=== PATIENT | male | born 1960 | race Caucasian/White ===

== ENCOUNTER 2020-06-20 18:14 | Inpatient (IN) | payer OTHER ==
[~2020-06-20] VITALS: Ht 172.7 cm; Wt 76.7 kg
[2020-06-20 18:35] VITALS: BP 127/79
[2020-06-20] MEDS ORDERED: TRAZODONE HCL150 MG ORAL (18:35)
[2020-06-20] MEDS ORDERED: MOTRIN IB200 MG ORAL (18:35)
[2020-06-20] MEDS ORDERED: VENTOLIN HFA18 GM INH (18:35)
[2020-06-20] MEDS ORDERED: RESTORIL15 MG ORAL (18:35)
[2020-06-20] MEDS ORDERED: SEROQUEL200 MG ORAL (18:35)
[2020-06-20] MEDS ORDERED: MILK OF MA400 MG/51 ORAL (18:35)
[2020-06-20] MEDS ORDERED: GABAPENTIN400 MG ORAL (18:35)
[2020-06-20] MEDS ORDERED: Sodium Chloride 2,200 ML IVLG ONE (18:45)
[2020-06-20 19:29] VITALS: BP 121/67
--- NOTE | 2020-06-20 19:29 | NUR ---
ED Nurse Note: Report received from OSCAR Landaverde. Patient connected to hall monitor. Vital signs are stable. Will cont. to monitor.
--- NOTE | 2020-06-20 19:30 | NUR ---
ED Nurse Note: Patient brought into ED by [facility] from [facility] for c/o chronic and uncontrolled, generalized body pain that has become worse over the past few weeks. Patient states he has hx of arthritis in his hands and neuropathy in his feet and that the motrin and gabapentin he is being prescribed at the facility has given him no relief. He is aaox4, breathing is normal and unlabored. He is able to ambulate with assistance/walker. Patient provided with warm blankets for comfort. Will cont. to monitor.
[2020-06-20 19:53] LABS: HEMOGLOBIN 12.9 G/DL (14.2-18.0); LYMPHOCYTES % (AUTO) 31.5 % (20.0-45.0); MEAN CORPUSCULAR VOLUME 86 FL (80-99); NEUTROPHILS % (AUTO) 37.5 % (45.0-75.0); PLATELET COUNT 125 K/UL (150-450); RED BLOOD COUNT 4.56 M/UL (4.70-6.10); RED CELL DISTRIBUTION WIDTH 15.3 % (11.6-14.8); WHITE BLOOD COUNT 3.7 K/UL (4.8-10.8)
[2020-06-20 20:13] LABS: INR 1.1 (0.9-1.1)
[2020-06-20] MEDS ORDERED: Ketorolac 30mg Inj IV ONE (20:15)
[2020-06-20 20:25] LABS: ALANINE AMINOTRANSFERASE 71 U/L (12-78); ALBUMIN 3.7 G/DL (3.4-5.0); ALKALINE PHOSPHATASE 123 U/L (46-116); ASPARTATE AMINO TRANSFERASE 59 U/L (15-37); BILIRUBIN,TOTAL 0.4 MG/DL (0.2-1.0); BLOOD UREA NITROGEN 20 mg/dL (7-18); CALCIUM 9.1 MG/DL (8.5-10.1); CARBON DIOXIDE 27 MMOL/L (21-32); CHLORIDE 102 MMOL/L (98-107); CKMB 0.9 NG/ML (0.0-3.6); CREATINE KINASE 63 U/L (26-308); FERRITIN 22 NG/ML (8-388); LACTATE DEHYDROGENASE 171 U/L (81-234); POTASSIUM 3.9 MMOL/L (3.5-5.1); SODIUM 137 MMOL/L (136-145)
[2020-06-20 21:05] VITALS: BP 121/70
--- NOTE | 2020-06-20 21:05 | NUR ---
ED Nurse Note: Patient is resting in bed, NAD noted. He has eyes closed and does not appear to be in severe pain at this time.
--- NOTE | 2020-06-20 21:42 | Emergency Room Report ---
History of Present Illness General Chief Complaint: Pain Source: Patient Present Illness HPI This [facility] in a [facility]. He states that he has chronic neuropathy pain. He states that he does not feel that he is getting appropriate pain management at the facility that he is located in. He states that he is only getting gabapentin, Motrin and Tylenol. He states this is insufficient for his ongoing pain. He states that he cannot sleep and he is frustrated with his chronic pain. He denies new symptoms. He denies recent illness. Denies cough or congestion. He has no other complaints. Allergies: Coded Allergies: BUPROPION (Verified Allergy, Unknown, 06/20/20) COVID-19 Screening Contact w/high risk pt: No Experienced COVID-19 symptoms?: No COVID-19 Testing performed CERTIFIED HOME HEALTH AIDE: No Patient History Past Medical History: see triage record, COPD, GERD, other - polyneuropathy, osteoarthritis Social History: Denies: smoking, alcohol use, drug use Reviewed Nursing Documentation: PMH: Agreed; PSxH: Agreed Nursing Documentation-PMH Past Medical History: No History, Except For Hx COPD: Yes Hx Gastrointestinal Problems: Yes - Gastritis History Of Psychiatric Problem: Yes - bipolar, depression, anxiety, alchohol abuse, Hx Neurological Problems: Yes - polyneuropathy Review of Systems All Other Systems: negative except mentioned in HPI Physical Exam Vital Signs Date Time Temp Pulse Resp B/P (MAP) Pulse Ox O2 Delivery O2 Flow Rate FiO2 06/20/20 18:16 98.4 89 18 127/79 (95) 98 Room Air Sp02 EP Interpretation: reviewed, normal General Appearance: no apparent distress, alert, GCS 15, non-toxic Head: normocephalic, atraumatic Eyes: bilateral eye normal inspection, bilateral eye PERRL ENT: hearing grossly normal, normal pharynx, no angioedema, normal voice Neck: full range of motion, supple/symm/no masses Respiratory: no respiratory distress, no retraction, no accessory muscle use, speaking full sentences Cardiovascular #1: regular rate, rhythm Rectal: deferred Musculoskeletal: normal inspection, normal range of motion, non-tender Neurologic: alert, oriented x3, sensory intact, responsive, speech normal Psychiatric: judgement/insight normal, memory normal, mood/affect normal, no suicidal/homicidal ideation Medical Decision Making Diagnostic Impression: Primary Impression: Intractable pain ER Course This patient has ongoing intractable pain. The primary care physician has been unable to manage the patient's chronic pain at the [facility] facility. The patient will be admitted to observation to undergo evaluation by neurology and pain management. Laboratory Tests Test 06/20/20 18:41 06/20/20 19:05 Troponin I 0.000 ng/mL (0.000-0.056) White Blood Count 3.7 K/UL (4.8-10.8) L Red Blood Count 4.56 M/UL (4.70-6.10) L Hemoglobin 12.9 G/DL (14.2-18.0) L Hematocrit 39.0 % (42.0-52.0) L Mean Corpuscular Volume 86 FL (80-99) Mean Corpuscular Hemoglobin 28.2 PG (27.0-31.0) Mean Corpuscular Hemoglobin Concent 33.0 G/DL (32.0-36.0) Red Cell Distribution Width 15.3 % (11.6-14.8) H Platelet Count 125 K/UL (150-450) L Mean Platelet Volume 6.7 FL (6.5-10.1) Neutrophils (%) (Auto) 37.5 % (45.0-75.0) L Lymphocytes (%) (Auto) 31.5 % (20.0-45.0) Monocytes (%) (Auto) 18.0 % (1.0-10.0) H Eosinophils (%) (Auto) 9.0 % (0.0-3.0) H Basophils (%) (Auto) 4.0 % (0.0-2.0) H Prothrombin Time 11.7 SEC (9.30-11.50) H Prothrombin Time INR 1.1 (0.9-1.1) Activated Partial Thromboplast Time 32 SEC (23-33) D-Dimer 0.44 mg/L FEU (0.00-0.49) Sodium Level 137 MMOL/L (136-145) Potassium Level 3.9 MMOL/L (3.5-5.1) Chloride Level 102 MMOL/L (98-107) Carbon Dioxide Level 27 MMOL/L (21-32) Blood Urea Nitrogen 20 mg/dL (7-18) H Creatinine 1.0 MG/DL (0.55-1.30) Estimated Glomerular Filtration Rate > 60 mL/min (>60) Glucose Level 90 MG/DL (74-106) Lactic Acid Level 0.90 mmol/L (0.4-2.0) Calcium Level 9.1 MG/DL (8.5-10.1) Ferritin 22 NG/ML (8-388) Total Bilirubin 0.4 MG/DL (0.2-1.0) Aspartate Amino Transferase (AST) 59 U/L (15-37) H Alanine Aminotransferase (ALT) 71 U/L (12-78) Alkaline Phosphatase 123 U/L (46-116) H Lactate Dehydrogenase 171 U/L (81-234) Total Creatine Kinase 63 U/L (26-308) Creatine Kinase MB 0.9 NG/ML (0.0-3.6) Creatine Kinase MB Relative Index 1.4 C-Reactive Protein, Quantitative < 0.4 mg/dL (0.00-0.90) Pro-B-Type Natriuretic Peptide 28 pg/mL (0-125) Total Protein 7.3 G/DL (6.4-8.2) Albumin 3.7 G/DL (3.4-5.0) Globulin 3.6 g/dL Albumin/Globulin Ratio 1.0 (1.0-2.7) Lipase 308 U/L (73-393) Microbiology Date/Time Source Procedure Growth Status 06/20/20 19:05 Nasopharynx SARS-CoV-2 RdRp Gene Assay - Final Complete Last Vital Signs Date Time Temp Pulse Resp B/P (MAP) Pulse Ox O2 Delivery O2 Flow Rate FiO2 06/20/20 21:05 98.4 81 14 121/70 97 Room Air Disposition: ADMITTED INPATIENT Condition: Stable Referrals: Franki Fuller DO (PCP) Donna Corona DO Jun 20, 2020 21:42
--- NOTE | 2020-06-20 21:50 | NUR ---
NURSE NOTES: Receive a report from Erika MOORE from ED.
--- NOTE | 2020-06-20 21:50 | NUR ---
ED Nurse Note: Report given to OSCAR Crisostomo. SHIRA aware that patient has not provided urine sample yet.
[2020-06-20 22:00] VITALS: BP 131/75
--- NOTE | 2020-06-20 22:00 | NUR ---
ED Nurse Note: Patient is stable for transfer to unit at this time. Vital signs are stable, NAD noted. Patient taken to unit via gurney by tech. IV is patent. Breathing is normal and unlabored. He took all belongings including walker with him. Pt transferred to bed without complication.
--- NOTE | 2020-06-20 22:00 | NUR ---
NURSE NOTES: Pt admitted via gurney from ED, awake and alert. No acute distress noted except dry cough. Given orientation unit with fall precautions. Body assessment is done- skin intact. Belonging list check done and brought his own FWW. Pt is able to walk slowly without FWW. Bed is locked and lowest. Will continue to monitor.
--- NOTE | 2020-06-20 22:40 | NUR ---
NURSE NOTES: Receive admission orders from Dr. Fuller. Order noted and carried out.
--- NOTE | 2020-06-20 22:50 | NUR ---
NURSE NOTES: Update pt for orders and consults. Pt shows appreciation. Will continue to follow up.
--- NOTE | 2020-06-20 23:15 | NUR ---
NURSE NOTES: Contact Dr. Rico for pt's consult. Receive a message back of seeing pt tomorrow. Will continue to follow up.
[2020-06-20] MEDS: D5 1/2NS 1,000 ML IV SCH (23:37)
[2020-06-20] MEDS: Morphine Sulfate 2mg/ml Inj(IV/IM USE ONLY) IVP PRN (23:48)
[2020-06-21] MEDS: TraZODone 100mg tab ORAL SCH (00:55)
[2020-06-21] MEDS ORDERED: Albuterol 90mcg Inhaler 8gm INH SCH (01:00)
[2020-06-21 01:22] LABS: APPEARANCE,URINE CLEAR; BILIRUBIN, URINE NEGATIVE (NEGATIVE); COLOR,URINE PALE YELLOW; GLUCOSE, URINE (UA) NEGATIVE (NEGATIVE); KETONES,URINE NEGATIVE (NEGATIVE); LEUKOCYTE ESTERASE ,URINE NEGATIVE (NEGATIVE); NITRITE,URINE NEGATIVE (NEGATIVE); PH,URINE 6 (4.5-8.0); PROTEIN,URINE NEGATIVE (NEGATIVE); UROBILINOGEN,URINE NORMAL MG/DL (0.0-1.0)
[2020-06-21 04:00] VITALS: BP 115/67
[2020-06-21] MEDS: Morphine Sulfate 2mg/ml Inj(IV/IM USE ONLY) IVP PRN (05:21)
--- NOTE | 2020-06-21 06:40 | NUR ---
NURSE NOTES: Left a message to Dr. Hoskins's office for consult.
[2020-06-21 06:47] LABS: BASOPHILS % (AUTO) 1.2 % (0.0-2.0); EOSINOPHILS % (AUTO) 9.1 % (0.0-3.0); HEMOGLOBIN 11.6 G/DL (14.2-18.0); LYMPHOCYTES % (AUTO) 45.5 % (20.0-45.0); MEAN CORPUSCULAR VOLUME 85 FL (80-99); MONOCYTES % (AUTO) 14.8 % (1.0-10.0); NEUTROPHILS % (AUTO) 29.4 % (45.0-75.0); PLATELET COUNT 109 K/UL (150-450); RED BLOOD COUNT 4.13 M/UL (4.70-6.10); RED CELL DISTRIBUTION WIDTH 14.9 % (11.6-14.8); WHITE BLOOD COUNT 3.7 K/UL (4.8-10.8)
--- NOTE | 2020-06-21 06:47 | NUR ---
NURSE HAND-OFF: Important Events on Shift: new admission, pain control-2x overnight Patient Status: stable Diet: regular Pending Orders: [] Pending Results/Labs:cbc, bmp Pending MD notification:consult for pain management and neurologist Latest Vital Signs: Temperature 97.4 , Pulse 73 , B/P 115 /67 , Respiratory Rate 18 , O2 SAT 96 , Room Air, O2 Flow Rate . Vital Sign Comment: [] Latest Reeves Fall Score: 50 Fall Risk: High Risk Safety Measures: Call light Within Reach, Bed Alarm , Side Rails Side Rails x2, Bed position Low and Locked. Fall Precautions: Door Sign Patient Fall Education pt says that after getting Morphine 2mg IVS makes him soothing and comfortable despite having pain. Will continue to follow up.
[2020-06-21] MEDS: Albuterol ud Inhalation HHN SCH ×4 (07:00→19:19)
--- NOTE | 2020-06-21 07:34 | NUR ---
NURSE NOTES: Report received from o RN, rounds made. Patient sleeping. No distress on RA. Respirations even/unlabored. IV (D51/2 NS) at 60 ml/hr to RAC, site asymptomatic. Call light in reach, bed in lowest position, will continue to monitor.
--- NOTE | 2020-06-21 07:35 | NUR ---
HAND-OFF: Report given to OSCAR [place]. Round is made.
[2020-06-21 07:44] LABS: ALANINE AMINOTRANSFERASE 49 U/L (12-78); ALBUMIN 2.9 G/DL (3.4-5.0); ALBUMIN/GLOBULIN RATIO 0.9 (1.0-2.7); ALKALINE PHOSPHATASE 91 U/L (46-116); ANION GAP 8 mmol/L (5-15); ASPARTATE AMINO TRANSFERASE 49 U/L (15-37); BILIRUBIN,TOTAL 0.4 MG/DL (0.2-1.0); BLOOD UREA NITROGEN 17 mg/dL (7-18); CALCIUM 8.4 MG/DL (8.5-10.1); CARBON DIOXIDE 24 MMOL/L (21-32); CHLORIDE 106 MMOL/L (98-107); CREATININE 0.9 MG/DL (0.55-1.30); POTASSIUM 4.1 MMOL/L (3.5-5.1); SODIUM 138 MMOL/L (136-145)
[2020-06-21 08:00] VITALS: BP 117/78
[2020-06-21] MEDS: Milk of Magnesia 30ml Ud ORAL SCH (08:50)
--- NOTE | 2020-06-21 08:52 | NUR ---
NURSE NOTES: Patient reports he had a BM this AM without difficulty, normal BFM BM, refused MOM.
[2020-06-21] MEDS: Heparin 5000 units/ml inj SUBQ SCH ×2 (08:53→21:00)
[2020-06-21] MEDS: QUEtiapine 200mg tab ORAL SCH ×2 (08:57→17:47)
--- NOTE | 2020-06-21 08:58 | NUR ---
NURSE NOTES: Unable to scan Gabapentin capsules x4 (400 mg total), Jose opened bin for Gabapentin 100 mg x4 caps, when scanned, the eMAR said medication not found, notified Marco in Pharmacy. Okay to give Gabapentin x4 capsules (100 mg each, 400 mg total).
--- NOTE | 2020-06-21 10:06 | Consultation ---
History of Present Illness General Date patient seen: Jun 21, 2020 Chief Complaint: Pain Present Illness Allergies: Coded Allergies: BUPROPION (Verified Allergy, Unknown, 06/20/20) Medication History Scheduled Albuterol Sulfate (Ventolin Hfa), 2 PUFFS INH EVERY 6 HOURS, (Reported) Gabapentin* (Gabapentin*), 400 MG ORAL THREE TIMES A DAY, (Reported) Ibuprofen* (Motrin Ib*), 600 MG ORAL Q6H, (Reported) Magnesium Hydroxide* (Milk Of Magnesia*), 30 ML ORAL DAILY, (Reported) Quetiapine Fumarate* (Seroquel*), 200 MG ORAL TWICE A DAY, (Reported) Trazodone* (Trazodone*), 100 MG ORAL BEDTIME, (Reported) Scheduled PRN Temazepam* (Restoril*), 15 MG ORAL BEDTIME PRN for Insomnia, (Reported) Patient History Healthcare decision maker Resuscitation status Advanced Directive on File Physical Exam Last 24 Hour Vital Signs Date Time Temp Pulse Resp B/P (MAP) Pulse Ox O2 Delivery O2 Flow Rate FiO2 06/21/20 08:00 98.0 78 18 117/78 (91) 98 06/21/20 04:00 97.4 73 18 115/67 (83) 96 06/21/20 01:16 Room Air 21 06/21/20 01:15 Room Air 21 06/20/20 22:30 Room Air 06/20/20 22:00 99.7 77 18 131/75 (93) 97 06/20/20 22:00 98.6 78 16 122/75 97 Room Air 06/20/20 22:00 78 16 Room Air 06/20/20 21:05 98.4 81 14 121/70 97 Room Air 06/20/20 20:51 98.4 06/20/20 19:29 98.4 80 15 121/67 100 Room Air 06/20/20 18:35 98.4 87 18 127/79 98 Room Air 06/20/20 18:16 98.4 89 18 127/79 (95) 98 Room Air Intake and Output 06/20/20 06/21/20 19:00 07:00 Intake Total 120 ml 520 ml Balance 120 ml 520 ml Intake Oral 120 ml 100 ml IV Total 420 ml # Voids 2 Laboratory Tests Test 06/20/20 18:41 06/20/20 19:05 06/20/20 23:00 06/21/20 04:50 Troponin I 0.000 ng/mL (0.000-0.056) White Blood Count 3.7 K/UL (4.8-10.8) L 3.7 K/UL (4.8-10.8) L Red Blood Count 4.56 M/UL (4.70-6.10) L 4.13 M/UL (4.70-6.10) L Hemoglobin 12.9 G/DL (14.2-18.0) L 11.6 G/DL (14.2-18.0) L Hematocrit 39.0 % (42.0-52.0) L 35.0 % (42.0-52.0) L Mean Corpuscular Volume 86 FL (80-99) 85 FL (80-99) Mean Corpuscular Hemoglobin 28.2 PG (27.0-31.0) 28.1 PG (27.0-31.0) Mean Corpuscular Hemoglobin Concent 33.0 G/DL (32.0-36.0) 33.1 G/DL (32.0-36.0) Red Cell Distribution Width 15.3 % (11.6-14.8) H 14.9 % (11.6-14.8) H Platelet Count 125 K/UL (150-450) L 109 K/UL (150-450) L Mean Platelet Volume 6.7 FL (6.5-10.1) 7.0 FL (6.5-10.1) Neutrophils (%) (Auto) 37.5 % (45.0-75.0) L 29.4 % (45.0-75.0) L Lymphocytes (%) (Auto) 31.5 % (20.0-45.0) 45.5 % (20.0-45.0) H Monocytes (%) (Auto) 18.0 % (1.0-10.0) H 14.8 % (1.0-10.0) H Eosinophils (%) (Auto) 9.0 % (0.0-3.0) H 9.1 % (0.0-3.0) H Basophils (%) (Auto) 4.0 % (0.0-2.0) H 1.2 % (0.0-2.0) Prothrombin Time 11.7 SEC (9.30-11.50) H Prothromb Time International Ratio 1.1 (0.9-1.1) Activated Partial Thromboplast Time 32 SEC (23-33) D-Dimer 0.44 mg/L FEU (0.00-0.49) Sodium Level 137 MMOL/L (136-145) 138 MMOL/L (136-145) Potassium Level 3.9 MMOL/L (3.5-5.1) 4.1 MMOL/L (3.5-5.1) Chloride Level 102 MMOL/L (98-107) 106 MMOL/L (98-107) Carbon Dioxide Level 27 MMOL/L (21-32) 24 MMOL/L (21-32) Blood Urea Nitrogen 20 mg/dL (7-18) H 17 mg/dL (7-18) Creatinine 1.0 MG/DL (0.55-1.30) 0.9 MG/DL (0.55-1.30) Estimat Glomerular Filtration Rate > 60 mL/min (>60) > 60 mL/min (>60) Glucose Level 90 MG/DL (74-106) 89 MG/DL (74-106) Lactic Acid Level 0.90 mmol/L (0.4-2.0) Calcium Level 9.1 MG/DL (8.5-10.1) 8.4 MG/DL (8.5-10.1) L Ferritin 22 NG/ML (8-388) Total Bilirubin 0.4 MG/DL (0.2-1.0) 0.4 MG/DL (0.2-1.0) Aspartate Amino Transf (AST/SGOT) 59 U/L (15-37) H 49 U/L (15-37) H Alanine Aminotransferase (ALT/SGPT) 71 U/L (12-78) 49 U/L (12-78) Alkaline Phosphatase 123 U/L (46-116) H 91 U/L (46-116) Lactate Dehydrogenase 171 U/L (81-234) Total Creatine Kinase 63 U/L (26-308) Creatine Kinase MB 0.9 NG/ML (0.0-3.6) Creatine Kinase MB Relative Index 1.4 C-Reactive Protein, Quantitative < 0.4 mg/dL (0.00-0.90) Pro-B-Type Natriuretic Peptide 28 pg/mL (0-125) Total Protein 7.3 G/DL (6.4-8.2) 6.0 G/DL (6.4-8.2) L Albumin 3.7 G/DL (3.4-5.0) 2.9 G/DL (3.4-5.0) L Globulin 3.6 g/dL 3.1 g/dL Albumin/Globulin Ratio 1.0 (1.0-2.7) 0.9 (1.0-2.7) L Lipase 308 U/L (73-393) Urine Color Pale yellow Urine Appearance Clear Urine pH 6 (4.5-8.0) Urine Specific Edison 1.020 (1.005-1.035) Urine Protein Negative (NEGATIVE) Urine Glucose (UA) Negative (NEGATIVE) Urine Ketones Negative (NEGATIVE) Urine Blood Negative (NEGATIVE) Urine Nitrite Negative (NEGATIVE) Urine Bilirubin Negative (NEGATIVE) Urine Urobilinogen Normal MG/DL (0.0-1.0) Urine Leukocyte Esterase Negative (NEGATIVE) Anion Gap 8 mmol/L (5-15) Microbiology Date/Time Source Procedure Growth Status 06/20/20 21:20 Rectal Mucosa Received 06/20/20 19:05 Nasopharynx SARS-CoV-2 RdRp Gene Assay - Final Complete Height (Feet): 5 Height (Inches): 8.00 Weight (Pounds): 160 Medications Current Medications Medications (Trade) Dose Ordered Sig/Alexander Route PRN Reason Start Time Stop Time Status Last Admin Dose Admin Albuterol Sulfate (Proventil) 2.5 mg Q6HRT HHN 06/21/20 07:00 06/26/20 06:59 06/21/20 08:08 Dextrose/Sodium Chloride 1,000 ml @ 60 mls/hr [id number] IV 06/20/20 23:00 07/20/20 22:59 06/20/20 23:37 Gabapentin (Neurontin) 400 mg THREE TIMES A DAY ORAL 06/21/20 09:00 07/21/20 08:59 06/21/20 08:56 Heparin Sodium (Porcine) (Heparin 5000 units/ml) 5,000 units EVERY 12 HOURS SUBQ 06/21/20 09:00 08/05/20 08:59 Ibuprofen (Motrin) 600 mg Q6H ORAL 06/21/20 00:00 07/21/20 00:00 Magnesium Hydroxide (Mom) 30 ml DAILY ORAL 06/21/20 09:00 07/21/20 08:59 Morphine Sulfate (Morphine Sulfate) 2 mg Q4H PRN IVP Severe Pain (Pain Scale 7-10) 06/20/20 23:00 06/27/20 22:59 06/21/20 05:21 Quetiapine Fumarate (SEROqueL) 200 mg TWICE A DAY ORAL 06/21/20 09:00 08/05/20 08:59 06/21/20 08:57 Temazepam (Restoril) 15 mg BEDTIME PRN ORAL Insomnia 06/20/20 23:15 06/27/20 23:14 Trazodone HCl (Desyrel) 100 mg BEDTIME ORAL 06/20/20 23:30 07/20/20 23:29 06/21/20 00:55 Assessment/Plan Assessment/Plan: (1) Left hip and shoulder pain (2) Left hip and shoulder OA (3) Peripheral neuropathy seen dictated Rico Be Jun 21, 2020 10:06
--- NOTE | 2020-06-21 11:00 | History and Physical Report ---
DATE OF ADMISSION: 06/20/2020 DATE AND TIME SEEN: 06/21/2020 at 9 a.m. CONSULTANTS: 1. Darnell Rico MD. 2. Raul Hoskins MD. 3. Vee Merino MD. CHIEF COMPLAINT: Neuropathy, intractable pain, depression. BRIEF HISTORY: This is a 59-year-old male from [facility], presents with increased right hip neuropathy, intractable pain and was quite depressed, sent to [place], diagnosed with above, admitted to medical floor. Currently, feeling a little bit better with pain medications. No complaints. REVIEW OF SYSTEMS: No chest pain. No shortness of breath. No nausea, vomiting, or diarrhea. PAST MEDICAL HISTORY: COPD, psych history, chronic pain, neuropathy, malnutrition. PAST SURGICAL HISTORY: Right femur. MEDICATIONS: Include Seroquel, MOM, Neurontin, heparin, gabapentin, albuterol, ibuprofen, trazodone, temazepam, morphine, ketorolac. ALLERGIES: Wellbutrin. SOCIAL HISTORY: Positive smoking. No alcohol. No intravenous drug abuse. FAMILY HISTORY: Noncontributory. PHYSICAL EXAMINATION: GENERAL: Calm in bed, oriented x3, no acute distress. VITAL SIGNS: Temperature is 98 degrees, pulse 78, respirations 18, blood pressure 117/78. CARDIOVASCULAR: No murmur. LUNGS: Distant and clear. ABDOMEN: Bowel sounds positive. Nontender, nondistended. EXTREMITIES: No cyanosis or edema. NEUROLOGIC: The patient moves all extremities, slightly weak. LABORATORY AND DIAGNOSTIC DATA: Labs at this time show white count 3.7, hemoglobin and hematocrit 11/35, platelets 109. BMP shows lactic acid 8.4, AST 49, albumin 2.9. INR is 1.1. Urinalysis is negative. ASSESSMENT: Neuropathy, pancytopenia, intractable pain, depression, COPD, psych history, chronic pain and malnutrition. PLAN: Pain control. PT and dietary evaluation. CBC and BMP in the morning. Resume home medications. Hematology evaluation Dr. Barrios. Franki Fuller D.O. DR: BOB/ROE JOB#: [id number] CC:
--- NOTE | 2020-06-21 11:07 | NUR ---
RADIOLOGY DEPT., LEFT SHOULDER AND HIP X-RAYS ARE COMPLETED.-PBRANDY
[2020-06-21 12:00] VITALS: BP 149/83
--- NOTE | 2020-06-21 12:45 | NUR ---
NURSE NOTES: Reviewed new medication orders (scheduled/PRN), verbalized understanding.
[2020-06-21] MEDS ORDERED: TRIAMCINOLONE A60 M1 TP (13:52)
[2020-06-21] MEDS ORDERED: MYLANTA30 M1 GT (13:52)
[2020-06-21] MEDS: D5 1/2NS 1,000 ML IV SCH (13:53)
[2020-06-21] MEDS ORDERED: IBUPROFEN600 M1 GT (13:56)
--- NOTE | 2020-06-21 14:40 | Consultation ---
History of Present Illness General Chief Complaint: Pain Present Illness Allergies: Coded Allergies: BUPROPION (Verified Allergy, Unknown, 06/20/20) Medication History Scheduled Albuterol Sulfate (Ventolin Hfa), 2 PUFFS INH EVERY 6 HOURS, (Reported) Gabapentin* (Gabapentin*), 400 MG ORAL THREE TIMES A DAY, (Reported) Magnesium Hydroxide* (Milk Of Magnesia*), 30 ML ORAL DAILY, (Reported) Quetiapine Fumarate* (Seroquel*), 200 MG ORAL TWICE A DAY, (Reported) Trazodone* (Trazodone*), 100 MG ORAL BEDTIME, (Reported) Triamcinolone Acetonide (Triamcinolone Acetonide 0.1% LOTN), 60 ML TP DAILY, (Reported) Scheduled PRN Al Hydroxide/mg Hydroxide (Mag-Al Liquid), 30 ML GT EVERY 4 HOURS PRN for GI DISTRESS, (Reported) Ibuprofen* (Motrin*), 600 MG GT Q6H PRN for For Pain, (Reported) Temazepam* (Restoril*), 15 MG ORAL BEDTIME PRN for Insomnia, (Reported) Discontinued Medications Ibuprofen* (Motrin Ib*), 600 MG ORAL Q6H, (Reported) Discontinued Reason: Prescription changed Patient History Healthcare decision maker Resuscitation status Advanced Directive on File Physical Exam Last 24 Hour Vital Signs Date Time Temp Pulse Resp B/P (MAP) Pulse Ox O2 Delivery O2 Flow Rate FiO2 06/21/20 13:18 87 18 99 Room Air 21 83 18 96 06/21/20 12:00 98.3 80 18 149/83 (105) 96 06/21/20 08:18 91 18 99 Room Air 21 88 18 97 06/21/20 08:00 98.0 78 18 117/78 (91) 98 06/21/20 04:00 97.4 73 18 115/67 (83) 96 06/21/20 01:16 Room Air 21 06/21/20 01:15 Room Air 21 06/20/20 22:30 Room Air 06/20/20 22:00 99.7 77 18 131/75 (93) 97 06/20/20 22:00 98.6 78 16 122/75 97 Room Air 06/20/20 22:00 78 16 Room Air 06/20/20 21:05 98.4 81 14 121/70 97 Room Air 06/20/20 20:51 98.4 06/20/20 19:29 98.4 80 15 121/67 100 Room Air 06/20/20 18:35 98.4 87 18 127/79 98 Room Air 06/20/20 18:16 98.4 89 18 127/79 (95) 98 Room Air Intake and Output 06/20/20 06/21/20 19:00 07:00 Intake Total 120 ml 520 ml Balance 120 ml 520 ml Intake Oral 120 ml 100 ml IV Total 420 ml # Voids 2 Laboratory Tests Test 06/20/20 18:41 06/20/20 19:05 06/20/20 23:00 06/21/20 04:50 Troponin I 0.000 ng/mL (0.000-0.056) White Blood Count 3.7 K/UL (4.8-10.8) L 3.7 K/UL (4.8-10.8) L Red Blood Count 4.56 M/UL (4.70-6.10) L 4.13 M/UL (4.70-6.10) L Hemoglobin 12.9 G/DL (14.2-18.0) L 11.6 G/DL (14.2-18.0) L Hematocrit 39.0 % (42.0-52.0) L 35.0 % (42.0-52.0) L Mean Corpuscular Volume 86 FL (80-99) 85 FL (80-99) Mean Corpuscular Hemoglobin 28.2 PG (27.0-31.0) 28.1 PG (27.0-31.0) Mean Corpuscular Hemoglobin Concent 33.0 G/DL (32.0-36.0) 33.1 G/DL (32.0-36.0) Red Cell Distribution Width 15.3 % (11.6-14.8) H 14.9 % (11.6-14.8) H Platelet Count 125 K/UL (150-450) L 109 K/UL (150-450) L Mean Platelet Volume 6.7 FL (6.5-10.1) 7.0 FL (6.5-10.1) Neutrophils (%) (Auto) 37.5 % (45.0-75.0) L 29.4 % (45.0-75.0) L Lymphocytes (%) (Auto) 31.5 % (20.0-45.0) 45.5 % (20.0-45.0) H Monocytes (%) (Auto) 18.0 % (1.0-10.0) H 14.8 % (1.0-10.0) H Eosinophils (%) (Auto) 9.0 % (0.0-3.0) H 9.1 % (0.0-3.0) H Basophils (%) (Auto) 4.0 % (0.0-2.0) H 1.2 % (0.0-2.0) Prothrombin Time 11.7 SEC (9.30-11.50) H Prothromb Time International Ratio 1.1 (0.9-1.1) Activated Partial Thromboplast Time 32 SEC (23-33) D-Dimer 0.44 mg/L FEU (0.00-0.49) Sodium Level 137 MMOL/L (136-145) 138 MMOL/L (136-145) Potassium Level 3.9 MMOL/L (3.5-5.1) 4.1 MMOL/L (3.5-5.1) Chloride Level 102 MMOL/L (98-107) 106 MMOL/L (98-107) Carbon Dioxide Level 27 MMOL/L (21-32) 24 MMOL/L (21-32) Blood Urea Nitrogen 20 mg/dL (7-18) H 17 mg/dL (7-18) Creatinine 1.0 MG/DL (0.55-1.30) 0.9 MG/DL (0.55-1.30) Estimat Glomerular Filtration Rate > 60 mL/min (>60) > 60 mL/min (>60) Glucose Level 90 MG/DL (74-106) 89 MG/DL (74-106) Lactic Acid Level 0.90 mmol/L (0.4-2.0) Calcium Level 9.1 MG/DL (8.5-10.1) 8.4 MG/DL (8.5-10.1) L Ferritin 22 NG/ML (8-388) Total Bilirubin 0.4 MG/DL (0.2-1.0) 0.4 MG/DL (0.2-1.0) Aspartate Amino Transf (AST/SGOT) 59 U/L (15-37) H 49 U/L (15-37) H Alanine Aminotransferase (ALT/SGPT) 71 U/L (12-78) 49 U/L (12-78) Alkaline Phosphatase 123 U/L (46-116) H 91 U/L (46-116) Lactate Dehydrogenase 171 U/L (81-234) Total Creatine Kinase 63 U/L (26-308) Creatine Kinase MB 0.9 NG/ML (0.0-3.6) Creatine Kinase MB Relative Index 1.4 C-Reactive Protein, Quantitative < 0.4 mg/dL (0.00-0.90) Pro-B-Type Natriuretic Peptide 28 pg/mL (0-125) Total Protein 7.3 G/DL (6.4-8.2) 6.0 G/DL (6.4-8.2) L Albumin 3.7 G/DL (3.4-5.0) 2.9 G/DL (3.4-5.0) L Globulin 3.6 g/dL 3.1 g/dL Albumin/Globulin Ratio 1.0 (1.0-2.7) 0.9 (1.0-2.7) L Lipase 308 U/L (73-393) Urine Color Pale yellow Urine Appearance Clear Urine pH 6 (4.5-8.0) Urine Specific [place] 1.020 (1.005-1.035) Urine Protein Negative (NEGATIVE) Urine Glucose (UA) Negative (NEGATIVE) Urine Ketones Negative (NEGATIVE) Urine Blood Negative (NEGATIVE) Urine Nitrite Negative (NEGATIVE) Urine Bilirubin Negative (NEGATIVE) Urine Urobilinogen Normal MG/DL (0.0-1.0) Urine Leukocyte Esterase Negative (NEGATIVE) Anion Gap 8 mmol/L (5-15) Microbiology Date/Time Source Procedure Growth Status 06/20/20 21:20 Rectal Mucosa Received 06/20/20 19:05 Nasopharynx SARS-CoV-2 RdRp Gene Assay - Final Complete Height (Feet): 5 Height (Inches): 8.00 Weight (Pounds): 160 Medications Current Medications Medications (Trade) Dose Ordered Sig/Alexander Route PRN Reason Start Time Stop Time Status Last Admin Dose Admin Albuterol Sulfate (Proventil) 2.5 mg Q6HRT HHN 06/21/20 07:00 06/26/20 06:59 06/21/20 13:08 Dextrose/Sodium Chloride 1,000 ml @ 60 mls/hr [id number] IV 06/20/20 23:00 07/20/20 22:59 06/21/20 13:53 Gabapentin (Neurontin) 400 mg THREE TIMES A DAY ORAL 06/21/20 09:00 07/21/20 08:59 06/21/20 12:42 Heparin Sodium (Porcine) (Heparin 5000 units/ml) 5,000 units EVERY 12 HOURS SUBQ 06/21/20 09:00 08/05/20 08:59 Ibuprofen (Motrin) 600 mg Q6H ORAL 06/21/20 00:00 07/21/20 00:00 06/21/20 12:44 Lidocaine (Lidoderm 5% PATCH) 2 patch Q24H TDERMAL 06/21/20 12:00 09/19/20 11:59 06/21/20 12:45 Magnesium Hydroxide (Mom) 30 ml DAILY ORAL 06/21/20 09:00 07/21/20 08:59 Methocarbamol (Robaxin) 500 mg Q8H PRN ORAL muscle spasm 06/21/20 10:15 07/21/20 10:14 Quetiapine Fumarate (SEROqueL) 200 mg TWICE A DAY ORAL 06/21/20 09:00 08/05/20 08:59 06/21/20 08:57 Temazepam (Restoril) 15 mg BEDTIME PRN ORAL Insomnia 06/20/20 23:15 06/27/20 23:14 Tramadol HCl (Ultram) 50 mg Q4H PRN ORAL severe pain 06/21/20 10:06 06/28/20 10:05 Trazodone HCl (Desyrel) 100 mg BEDTIME ORAL 06/20/20 23:30 07/20/20 23:29 06/21/20 00:55 Assessment/Plan Assessment/Plan: Hematology Consultation REQ : Franki Fuller RFC: Pancytopenia DOS: 06/21/2020 ID 59y old male, This patient resides in a alf facility. He states that he has chronic neuropathy pain. He states that he does not feel that he is getting appropriate pain management at the facility that he is located in. He states that he is only getting gabapentin, Motrin and Tylenol. He states this is insufficient for his ongoing pain. He states that he cannot sleep and he is frustrated with his chronic pain. He denies new symptoms. He denies recent i llness. Denies cough or congestion. He has no other complaints. Has been seen by pain management. Allergies: BUPROPION (Verified Allergy, Unknown, 06/20/20) COVID-19 Screening Contact w/high risk pt: No Experienced COVID-19 symptoms?: No COVID-19 Testing performed PAN CLEANER: No Patient History Past Medical History: see triage record, COPD, GERD, other - polyneuropathy, o steoarthritis Social History: Denies: smoking, alcohol use, drug use Reviewed Nursing Documentation: PMH: Agreed; PSxH: Agreed Nursing Documentation-PMH Past Medical History: No History, Except For Hx COPD: Yes Hx Gastrointestinal Problems: Yes - Gastritis History Of Psychiatric Problem: Yes - bipolar, depression, anxiety, alchohol abuse, Hx Neurological Problems: Yes - polyneuropathy Review of Systems All Other Systems: negative except mentioned in HPI Physical Exam: Vitals: reviewed General: NAD HEENT: nc, at Neck: supple Chest: clear breath sounds bilaterally Cardiovascular: RRR, no s3, s4 Abdomen: soft, nontender, nd Extremities: no cce, normal range of motion Neuro: alert and oriented Labs: reviewed Imaging: noted Assessment and Recs # Pancytopenia -- multiple etiologies could be related to underlying liver disease, medication-induced, infection versus viral syndrome versus underlying bone marrow cause --> peripheral smear has been ordered and does not show significant abnormalities --> Medications have been reviewed --> Continue to monitor for improvement, trend cbc --> Hep panel and HIV have been orders --> US abd ordered to r/o cirrhosis and hepatosplenomegaly --> reverse isolation if ANC is <2000 --> Give neupogen if ANC <1000 --> Transfuse if hgb <7, with 1 unit prbc # Coagulopathy --> mildly elev pt # Intractable pain --> as per pain management # Transaminitis --> monitor, ast elev # Dvt ppx scds The timing of this note does not necessarily reflect the time of the patient was seen. Greatly appreciate consultation. Daniel Barrios MD Jun 21, 2020 14:40
--- NOTE | 2020-06-21 14:50 | NUR ---
CASE MANAGEMENT: INITIAL REVIEW 06/20/2020 59 YO M PRESENTED TO ED FROM [facility] CC: PAIN PMHx: COPD, GERD, polyneuropathy, osteoarthritis SI:INTRACTABLE PAIN VS: T 98.4 HR 89 RR 18 B/P 127/79 SATS 98% ON RA LABS: WBC 3.7 BUN 20 AST 59 ALP 123 IS: NS BOLUS X1 TORADOL IV X1 PATIENT ADMITTED TO MED/SURG 06/20/2020 @ 2053 DCP: SNF PLAN OF CARE: PT EVAL CONCURRENT REVIEW FOR 06/21/2020 SI: INTRACTABLE PAIN VS: T 98.3 HR 80 RR 18 B/P 149/83 SATS 96% ON RA LABS: WBC 3.7 CA 8.4 AST 49 HIV ANTIBODY PENDING IS: DEXTROSE/SODIUM IV @ 60 ML/HR SEROQUEL PO BID TRAZODONE PO QHS MOTRIN PO Q6H MED/SURG DCP: SNF PLAN OF CARE: PT EVAL
--- NOTE | 2020-06-21 14:58 | Diagnostic Imaging Report ---
Procedure: XRAY Chest 1v Reason for study: Chest pain. Comparison films: None. FINDINGS: A single one view chest is obtained. Vascularity is normal. The lung moss are clear bilaterally. Cardiac and mediastinal silhouette are within normal limits. CP angles are sharp. The bony thorax appear unremarkable. IMPRESSION: NO ACUTE CARDIOPULMONARY DISEASE.
--- NOTE | 2020-06-21 15:07 | NUR ---
insurance no b/ar or email indication where to fax clinicals email request sent pt only meets obs criteria at this point. Dr Fuller made aware. xrays are still pending. Addendum: 06/21/20 at 1640 by Lisbeth Mcconnell CM PROGRESS NOTES FAXED TO Connor Cerda - [phone] fax [phone]
--- NOTE | 2020-06-21 15:57 | NUR ---
P.T Note: P.T evaluation complete. Pt presented full independent in all basic functional mobilities and gait/locomotion despite c/o L shoulder pain 8-06/08. Current functional status does not warrant skilled P.T service at this time. DC P.T service. Thank you for this referral.
[2020-06-21 16:00] VITALS: BP 97/61
--- NOTE | 2020-06-21 17:15 | Consultation ---
DATE OF CONSULTATION: 06/21/2020 PAIN MANAGEMENT CONSULTATION CONSULTING PHYSICIAN: Darnell Rico MD. REFERRING PHYSICIAN: Franki Fuller DO. PHYSICIAN MEDICAL CENTER DIRECTOR: HOLGER Perkins. CHIEF COMPLAINT: Left shoulder pain, left hip pain, and bilateral lower extremity pain. HISTORY OF PRESENT ILLNESS: The patient is a 59-year-old male, who is being seen on the Med/Surg floor of [facility] for initial pain management consultation. The patient was admitted under the care of Dr. Fuller due to intractable pain, [facility] having complaints of bilateral lower extremity pain due to peripheral neuropathy as well as left shoulder and left hip pain. Pain is worse with movement and activities. He states he has reduced range of motion in his left shoulder, which causing him discomfort and was admitted to the hospital. He is on Neurontin 400 mg tablet three times a day and Motrin in the [facility] facility with minimal pain relief. He was started on a morphine 2 mg IV every hours as needed for pain as per Dr. Fuller. At this time, discussed with the patient in detail about opioid usage with the osteoarthritic pain. However, due to the patient's pain, we will discontinue the morphine, start him on medication such as tramadol and add lidocaine patches, and muscle relaxer to help relieve his pain, and we recommend orthopedic surgeon as per Dr. Fuller to rule out any further pathology. We will order x-rays of the left shoulder and left hip as well. PAST MEDICAL HISTORY: GERD, COPD, polyneuropathy, osteoarthritis. PAST SURGICAL HISTORY: Right femur ORIF. SOCIAL HISTORY: Smokes cigarettes. Denies alcohol or IV drug abuse. ALLERGIES: Wellbutrin. MEDICATIONS: Albuterol, Neurontin, Motrin, Seroquel, trazodone, and Restoril. REVIEW OF SYSTEMS: Denies rash, fever, chills, sweating, dizziness, drowsiness, blurred vision, sore throat, or change in weight. No nausea, vomiting, diarrhea, or blood in the stool. No dysuria. PHYSICAL EXAMINATION: GENERAL: Alert, awake, and oriented. VITAL SIGNS: Blood pressure 117/78, heart rate 78, oxygen saturation 98%, respiratory rate 18, temperature 98 degrees Fahrenheit. HEENT: PERRLA. NECK: Range of motion is full in all directions. No tenderness to paracervical muscles. No adenopathy. LUNGS: Decreased breath sounds bilaterally. HEART: S1 and S2, regular. ABDOMEN: Soft and nontender. BACK: Range of motion is full on flexion and extension. EXTREMITIES: Upper and lower extremity range of motion is decreased due to the patient's condition. No cyanosis. No clubbing. No edema. Sensory is reduced. Reflexes are not obtainable. No adenopathy. ASSESSMENT AND PLAN: A 59-year-old male with left hip and shoulder pain, osteoarthritis, and peripheral neuropathy. The patient will be continued on Neurontin. We will discontinue the morphine and start the patient on lidocaine patch to be applied to the left hip and left shoulder. Robaxin 500 mg tablet every 8 hours as needed for muscle spasm. We will order x-ray of the left shoulder and left hip to rule out any further pathology and recommend orthopedic surgeon as per Dr. Fuller. The patient was discussed with Dr. Rico and Dr. Rico concurred. We will follow the patient. Thank you very much for the courtesy of this consultation. Darnell Rico M.D. HOLGER Perkins DR: PRITI JOB#: [id number] CC:
--- NOTE | 2020-06-21 17:34 | Diagnostic Imaging Report ---
EXAM: XR Left Shoulder Complete, 2 or More Views CLINICAL HISTORY: PAIN TECHNIQUE: Two or more views of the left shoulder. COMPARISON: No relevant prior studies available. FINDINGS: Bones/joints: Advanced degeneration of the left glenohumeral joint. Mild osteoarthrosis of the left acromioclavicular joint.. No acute fracture. No dislocation. Soft tissues: Unremarkable. IMPRESSION: Advanced degeneration of the left glenohumeral joint. Mild osteoarthrosis of the left AC joint.
--- NOTE | 2020-06-21 18:05 | Diagnostic Imaging Report ---
EXAM: XR Left Hip, 1 view CLINICAL HISTORY: PAIN TECHNIQUE: One frontal view of the left hip COMPARISON: No relevant prior studies available. FINDINGS: Bones/joints: Mild degeneration of the left hip. Degeneration of the pubic symphysis. No acute fracture. No dislocation. Soft tissues: Unremarkable. IMPRESSION: Degeneration of the pubic symphysis and left hip.
--- NOTE | 2020-06-21 19:00 | NUR ---
NURSE HAND-OFF: Important Events on Shift:PT evaluation done, PXR (left shoulder/left hip) done, Lidocaine patches applied to left shoulder (lateral arm)/left hip (thigh) Patient Status: Stable Diet: Regular Pending Orders: Labs in AM Pending Results/Labs:CBC BMP 06/22 Pending MD notification:none Latest Vital Signs: Temperature 97.9 , Pulse 76 , B/P 97 /61 , Respiratory Rate 18 , O2 SAT 94 , Room Air, O2 Flow Rate . Vital Sign Comment: none Latest Reeves Fall Score: 50 Fall Risk: High Risk Safety Measures: Call light Within Reach, Bed Alarm Zone 1, Side Rails Side Rails x2, Bed position Low and Locked. Fall Precautions: Yellow Socks Door Sign Patient Fall Education Report given to Andressa RN.
--- NOTE | 2020-06-21 19:30 | NUR ---
NURSE NOTES: Receive a report from OSCAR [place]. Round is done. Pt is asleep but easily aroused. No acute distress noted. Pt says that pain is there but tolerating. Explain for current regime for pain control. Pt verbalizes understanding. Call light within reach. Will continue to monitor.
[2020-06-21 20:00] VITALS: BP 98/59
--- NOTE | 2020-06-21 21:30 | Consultation ---
DATE OF CONSULTATION: 06/21/2020 CONSULTING PHYSICIAN: Vee Merino M.D. HISTORY OF PRESENT ILLNESS: This is a 59-year-old male patient who came from [facility] to the hospital because of neuropathy, intractable pain, and depression and right hip proximal neuropathy. The patient basically complains of depression because of chronic pain low energy, poor appetite, and loss of interest in activity. PAST MEDICAL HISTORY: The patient has a history of intractable pain, but he also has overlying diagnosis of paranoid schizophrenia, which he takes Seroquel 100 mg twice a day. The patient low energy, poor appetite, and loss of interest in activity. ALLERGIES: Wellbutrin. SUBSTANCE ABUSE HISTORY: No known history of drug or alcohol use. FAMILY PSYCHIATRIC HISTORY: Denies. PAIN ASSESSMENT: 11/06 pain. DEVELOPMENTAL PROBLEMS: Denies. SOCIAL HISTORY: Lives in [facility]. Financially supported by [employer]. No legal problems. Positive psychiatric history, history of bipolar 2 and paranoid schizophrenia. STRENGTHS: Motivated to get better and has a place to live. WEAKNESSES: Impulsive, minimal support system. MENTAL STATUS EXAMINATION: This is a 59-year-old male. His appearance is disheveled. Attitude, irritable and agitated. Affect, restricted. Intellect poor. Mood, depressed and anxious. Motor activity, psychomotor agitation. Attention is poor. Orientation x2. Speech is low volume, slurred. Thought process, disorganized. Insight and judgment is poor. DIAGNOSIS: Paranoid schizophrenia acute exacerbation. PLAN: Treat with medication regimen of Seroquel 20 mg twice a day and treat him with also Neurontin and trazodone 100 mg at bedtime and Neurontin 400 mg 3 times a day. Twenty minutes of reality-based supportive psychotherapy provided. Seen at bedside. Twenty minutes of cognitive behavioral therapy provided to help identify his automatic negative thoughts, help him convert his negative thoughts to more positive thoughts to reduce depression, anxiety, and mood lability. Chart reviewed. Discussed with staff. Vee Merino M.D. DR: Alvin JOB#: [id number] CC:
[2020-06-21] MEDS: traMADol 50mg tab ORAL PRN (23:32)
[2020-06-22] VITALS: BP 105/63
[2020-06-22] MEDS: TraZODone 100mg tab ORAL SCH ×2 (00:44→22:22)
[2020-06-22] MEDS: Albuterol ud Inhalation HHN SCH ×4 (00:59→19:26)
--- NOTE | 2020-06-22 01:00 | NUR ---
NURSE NOTES: After taking tramadol for pain, pt is asleep. Will continue to monitor.
[2020-06-22 04:00] VITALS: BP 125/70
[2020-06-22] MEDS: traMADol 50mg tab ORAL PRN ×3 (05:51→22:22)
--- NOTE | 2020-06-22 06:00 | NUR ---
NURSE NOTES: Pt says that he had a good night sleep. Pain level is 8/10 but feeling smooth. Provide prn Tramadol 1t po. Made aware of S/Es. No SOB/ no distress noted. Will continue to monitor.
[2020-06-22 06:25] LABS: HEMATOCRIT 34.6 % (42.0-52.0); HEMOGLOBIN 11.4 G/DL (14.2-18.0); MEAN CORPUSCULAR VOLUME 85 FL (80-99); PLATELET COUNT 93 K/UL (150-450); RED BLOOD COUNT 4.06 M/UL (4.70-6.10); RED CELL DISTRIBUTION WIDTH 14.8 % (11.6-14.8); WHITE BLOOD COUNT 3.4 K/UL (4.8-10.8)
--- NOTE | 2020-06-22 06:33 | NUR ---
NURSE HAND-OFF: Important Events on Shift: Pain control-Given prn Tramadol 1t po 2x including routine meds, Hold Heparin d/t low PLT-no bruise noted. Patient Status: stable Diet: regular Pending Orders: [] Pending Results/Labs:CBC, CMP Pending MD notification:Nicotine patch d/t smoker-1/2 package a day Latest Vital Signs: Temperature 98.0 , Pulse 74 , B/P 125 /70 , Respiratory Rate 18 , O2 SAT 94 , Room Air, O2 Flow Rate . Vital Sign Comment: [] Latest Reeves Fall Score: 50 Fall Risk: High Risk Safety Measures: Call light Within Reach, Bed Alarm Zone 1, Side Rails Side Rails x2, Bed position Low and Locked. Fall Precautions: Door Sign Patient Fall Education
[2020-06-22 06:34] LABS: ANION GAP 4 mmol/L (5-15); BLOOD UREA NITROGEN 13 mg/dL (7-18); CALCIUM 8.5 MG/DL (8.5-10.1); CARBON DIOXIDE 26 MMOL/L (21-32); CHLORIDE 107 MMOL/L (98-107); CREATININE 1.1 MG/DL (0.55-1.30); SODIUM 137 MMOL/L (136-145)
[2020-06-22] MEDS: D5 1/2NS 1,000 ML IV SCH (07:06)
--- NOTE | 2020-06-22 07:15 | NUR ---
HAND-OFF: Report given to OSCAR [place].
[2020-06-22 08:00] VITALS: BP 132/72
[2020-06-22] MEDS: Heparin 5000 units/ml inj SUBQ SCH ×2 (09:00→21:00)
[2020-06-22] MEDS: Milk of Magnesia 30ml Ud ORAL SCH (09:00)
--- NOTE | 2020-06-22 09:17 | General Progress Note ---
Subjective Constitutional: Reports: weakness Allergies: Coded Allergies: BUPROPION (Verified Allergy, Unknown, 06/20/20) All Systems: reviewed and negative except above Subjective sl gen pain Objective Last 24 Hour Vital Signs Date Time Temp Pulse Resp B/P (MAP) Pulse Ox O2 Delivery O2 Flow Rate FiO2 06/22/20 08:00 97.5 84 18 132/72 (92) 94 06/22/20 07:56 80 18 99 Room Air 21 77 18 97 06/22/20 04:00 98.0 74 18 125/70 (88) 94 06/22/20 00:00 97.9 79 18 105/63 (77) 94 06/21/20 21:00 Room Air 06/21/20 20:00 97.9 84 16 98/59 (72) 93 06/21/20 19:19 84 18 99 Room Air 21 76 18 95 06/21/20 16:00 97.9 76 18 97/61 (73) 94 06/21/20 13:18 87 18 99 Room Air 21 83 18 96 06/21/20 12:00 98.3 80 18 149/83 (105) 96 Intake and Output 06/21/20 06/22/20 19:00 07:00 Intake Total 1640 ml 840 ml Output Total 1250 ml 950 ml Balance 390 ml -110 ml Intake Oral 1100 ml 120 ml IV Total 540 ml 720 ml Output Urine Total 1250 ml 950 ml # Voids 3 2 # Bowel Movements 2 Laboratory Tests 06/22/20 04:55: White Blood Count 3.4L, Red Blood Count 4.06L, Hemoglobin 11.4L, Hematocrit 34.6L, Mean Corpuscular Volume 85, Mean Corpuscular Hemoglobin 28.0, Mean Corpuscular Hemoglobin Concent 32.9, Red Cell Distribution Width 14.8, Platelet Count 93L, Mean Platelet Volume 6.6, Neutrophils (%) (Auto) , Lymphocytes (%) (Auto) , Monocytes (%) (Auto) , Eosinophils (%) (Auto) , Basophils (%) (Auto) , Differential Total Cells Counted 100, Neutrophils % (Manual) 43L, Lymphocytes % (Manual) 43, Monocytes % (Manual) 6, Eosinophils % (Manual) 8H, Basophils % (Manual) 0, Band Neutrophils 0, Platelet Estimate DecreasedL, Platelet Morphology Normal, Anisocytosis 1+, Sodium Level 137, Potassium Level 4.0, Chloride Level 107, Carbon Dioxide Level 26, Anion Gap 4L, Blood Urea Nitrogen 13, Creatinine 1.1, Estimat Glomerular Filtration Rate > 60, Glucose Level 87, Calcium Level 8.5, Hepatitis A IgM Antibody [Pending], Hepatitis B Surface Antigen [Pending], Hepatitis B Core IgM Antibody [Pending], Hepatitis C Antibody [Pending] Height (Feet): 5 Height (Inches): 8.00 Weight (Pounds): 160 General Appearance: lethargic EENT: normal ENT inspection Neck: normal alignment Cardiovascular: normal peripheral pulses, normal rate, regular rhythm Respiratory/Chest: chest wall non-tender, lungs clear, normal breath sounds Abdomen: normal bowel sounds, non tender, soft Extremities: normal inspection Edema: no edema noted Arm (L), no edema noted Arm (R), no edema noted Leg (L), no edema noted Leg (R), no edema noted Pedal (L), no edema noted Pedal (R), no edema noted Generalized Neurologic: responsive, motor weakness Skin: normal pigmentation, warm/dry Assessment/Plan Problem List: (1) Neuropathy ICD Codes: G62.9 - Polyneuropathy, unspecified SNOMED: 393502111 (2) Pancytopenia ICD Codes: D61.818 - Other pancytopenia SNOMED: 889399898 (3) Depressed ICD Codes: F32.9 - Major depressive disorder, single episode, unspecified SNOMED: 53096534 (4) Malnutrition ICD Codes: E46 - Unspecified protein-calorie malnutrition SNOMED: 89048107 (5) COPD (chronic obstructive pulmonary disease) ICD Codes: J44.9 - Chronic obstructive pulmonary disease, unspecified SNOMED: 05158431 (6) Chronic pain ICD Codes: G89.29 - Other chronic pain SNOMED: 81321418 (7) Intractable pain ICD Codes: R52 - Pain, unspecified SNOMED: 43502891 Status: unchanged Assessment/Plan: pt diet pain control psyc eval heme eval cbc bmp am Franki Fuller DO Jun 22, 2020 09:17
[2020-06-22] MEDS: QUEtiapine 200mg tab ORAL SCH ×2 (10:11→17:56)
[2020-06-22] MEDS: Methocarbamol 500mg tab ORAL PRN (11:39)
--- NOTE | 2020-06-22 11:51 | Initial Psychiatric Evaluation ---
Psychiatry Consultation Psychiatry Consultation Chief Complaint: Pain History of Present Illness: 59 yo male doing well on Seroquel. Paient denies suicidal or hmoicidal ideations. Allergies: Coded Allergies: BUPROPION (Verified Allergy, Unknown, 06/20/20) Medication History Scheduled Albuterol Sulfate (Ventolin Hfa), 2 PUFFS INH EVERY 6 HOURS, (Reported) Gabapentin* (Gabapentin*), 400 MG ORAL THREE TIMES A DAY, (Reported) Magnesium Hydroxide* (Milk Of Magnesia*), 30 ML ORAL DAILY, (Reported) Quetiapine Fumarate* (Seroquel*), 200 MG ORAL TWICE A DAY, (Reported) Trazodone* (Trazodone*), 100 MG ORAL BEDTIME, (Reported) Triamcinolone Acetonide (Triamcinolone Acetonide 0.1% LOTN), 60 ML TP DAILY, (Reported) Scheduled PRN Al Hydroxide/mg Hydroxide (Mag-Al Liquid), 30 ML GT EVERY 4 HOURS PRN for GI DISTRESS, (Reported) Ibuprofen* (Motrin*), 600 MG GT Q6H PRN for For Pain, (Reported) Temazepam* (Restoril*), 15 MG ORAL BEDTIME PRN for Insomnia, (Reported) Discontinued Medications Ibuprofen* (Motrin Ib*), 600 MG ORAL Q6H, (Reported) Discontinued Reason: Prescription changed Objective Data Height (Feet): 5 Height (Inches): 8.00 Weight (Pounds): 160 Appearance: well groomed Behavior Mannerisms: poor eye contact Affect: constricted Thought Process: disorganized Perceptual Disturbances: auditory Suicidal Ideation: no plan Assessment/Plan Assessment/Plan: Continue Seroquel 200 bid and 20 min of CBT thereapy whereas I help the patiernt identify his automatic negative thoughts and help him convert those negative thoughts to more positive thougt. Diagnosis [place] I: Paranoid schizophrenia Vee Merino MD Jun 22, 2020 11:51
[2020-06-22 12:00] VITALS: BP 116/66
--- NOTE | 2020-06-22 12:12 | NUR ---
CASE MANAGEMENT:REVIEW 06/22/20 SI: INTRACTABLE PAIN. COPD. DEPRESSION 97.5 84 18 132/72 94% ON RA H/H-11.4/34.6 PLT-93 IS: LIDOCAINE PATCH Q24 ROBAXIN PO Q8HRS PRN ULTRAM PO Q4HRS PRN NEURONTIN PO TID HEPARIN SQ Q12 ALBUTEROL HHN Q6HRS RTC IVF@60/HR : MED/SURG [facility]
[2020-06-22] MEDS ORDERED: D5 1/2NS 1000ml IV ONE (15:09)
[2020-06-22 16:30] VITALS: BP 112/63
--- NOTE | 2020-06-22 18:00 | NUR ---
NURSE NOTES: Patient refused scheduled Motrin, states, "it's not working so why should I take it". Reviewed eMAR with patient, administered Ultram at this time, per patient request. Also, medicated with Roboxin at 1138, patient reports, pain remains unchanged. Patient states "I need to keep moving and stretching, otherwise my left arm will stiffen up." Will endorse to next shift.
--- NOTE | 2020-06-22 19:11 | NUR ---
NURSE HAND-OFF: Important Events on Shift:Uneventful Patient Status: stable Diet: Regular Pending Orders: LABS in AM Pending Results/Labs:CBC BMP 06/23 (Hepatitis & HIV) Pending MD notification:none Latest Vital Signs: Temperature 98.2 , Pulse 82 , B/P 112 /63 , Respiratory Rate 18 , O2 SAT 94 , Room Air, O2 Flow Rate . Vital Sign Comment: none Latest Reeves Fall Score: 50 Fall Risk: High Risk Safety Measures: Call light Within Reach, Bed Alarm Zone 1, Side Rails Side Rails x2, Bed position Low and Locked. Fall Precautions: Door Sign Patient Fall Education Report given to Angie MOORE. Addendum: 06/22/20 at 1945 by Deanne Knapp RN Patient refused scheduled Motrin, due to ineffective. Medicated with Ultram and Roboxin, with very little change in pain level.
[2020-06-22 20:00] VITALS: BP 101/59
--- NOTE | 2020-06-22 20:30 | NUR ---
NURSES NOTE: Met pt in bed, A/OX4, denies pain currently. No outward s/s of distress noted. Breathing pattern is even and unlabored on RA. IV in tact, patent, running IVF without incident. Urinal at bedside. Lidoderm patch to be removed at 0000. All due medications will be administered. Bed at lowest level. Call light within reach. Pt will continue to be monitored.
[2020-06-23] MEDS: Albuterol ud Inhalation HHN SCH ×4 (00:02→19:56)
[2020-06-23] MEDS: D5 1/2NS 1,000 ML IV SCH ×2 (00:38→16:43)
[2020-06-23 04:00] VITALS: BP 116/63
[2020-06-23 06:07] LABS: HEMATOCRIT 34.2 % (42.0-52.0); HEMOGLOBIN 11.4 G/DL (14.2-18.0); MEAN CORPUSCULAR VOLUME 85 FL (80-99); PLATELET COUNT 88 K/UL (150-450); RED BLOOD COUNT 4.04 M/UL (4.70-6.10); RED CELL DISTRIBUTION WIDTH 14.6 % (11.6-14.8); WHITE BLOOD COUNT 3.9 K/UL (4.8-10.8)
[2020-06-23 06:11] LABS: ANION GAP 6 mmol/L (5-15); BLOOD UREA NITROGEN 13 mg/dL (7-18); CALCIUM 8.6 MG/DL (8.5-10.1); CARBON DIOXIDE 26 MMOL/L (21-32); CHLORIDE 105 MMOL/L (98-107); POTASSIUM 4.2 MMOL/L (3.5-5.1); SODIUM 137 MMOL/L (136-145)
--- NOTE | 2020-06-23 06:16 | Hematology/Onc Progress Note ---
Assessment/Plan Assessment/Plan Assessment and Recs # Pancytopenia -- multiple etiologies could be related to underlying liver disease, medication-induced, infection versus viral syndrome versus underlying bone marrow cause --> peripheral smear has been ordered and does not show significant abnormalities --> Medications have been reviewed --> Continue to monitor for improvement, trend cbc --> Hep panel and HIV have been orders-->results are neg --> US abd ordered to r/o cirrhosis and hepatosplenomegaly --> reverse isolation if ANC is <2000 --> Give neupogen if ANC <1000 --> Transfuse if hgb <7, with 1 unit prbc # Coagulopathy --> mildly elev pt --> imaging pend # Intractable pain --> as per pain management # Transaminitis --> monitor, ast elev # Dvt ppx scds The timing of this note does not necessarily reflect the time of the patient was seen. Greatly appreciate consultation. Subjective Constitutional: Denies: no symptoms, chills, fever, malaise, weakness, other HEENT: Denies: no symptoms, eye pain, blurred vision, tearing, double vision, e ar pain, ear discharge, nose pain, nose congestion, throat pain, throat swelling, mouth pain, mouth swelling, other Cardiovascular: Denies: no symptoms, chest pain, edema, irregular heart rate, lightheadedness, palpitations, syncope, other Gastrointestinal/Abdominal: Denies: no symptoms, abdomen distended, abdominal pain, black stools, tarry stools, blood in stool, constipated, diarrhea, difficulty swallowing, nausea, poor appetite, poor fluid intake, rectal bleed ing, vomiting, other Genitourinary: Denies: no symptoms, burning, discharge, frequency, flank pain, hematuria, incontinence, pain, urgency, other Neurologic/Psychiatric: Denies: no symptoms, anxiety, depressed, emotional problems, headache, numbness, paresthesia, pre-existing deficit, seizure, tingling, tremors, weakness, other Endocrine: Denies: no symptoms, excessive sweating, flushing, intolerance to cold, intolerance to heat, increased hunger, increased thirst, increased urine, unexplained weight gain, unexplained weight loss, other Hematologic/Lymphatic: Denies: no symptoms, anemia, easy bleeding, easy bruising, adenopathy, other Allergies: Coded Allergies: BUPROPION (Verified Allergy, Unknown, 06/20/20) Subjective 06/23 labs reviewed, meds noted, no bleeding, hep and hiv neg Objective Objective Current Medications Medications (Trade) Dose Ordered Sig/Alexander Route PRN Reason Start Time Stop Time Status Last Admin Dose Admin Albuterol Sulfate (Proventil) 2.5 mg Q6HRT HHN 06/21/20 07:00 06/26/20 06:59 06/23/20 00:02 Dextrose/Sodium Chloride 1,000 ml @ 60 mls/hr [id number] IV 06/20/20 23:00 07/20/20 22:59 06/23/20 00:38 Gabapentin (Neurontin) 400 mg THREE TIMES A DAY ORAL 06/21/20 09:00 07/21/20 08:59 06/22/20 17:56 Heparin Sodium (Porcine) (Heparin 5000 units/ml) 5,000 units EVERY 12 HOURS SUBQ 06/21/20 09:00 08/05/20 08:59 Ibuprofen (Motrin) 600 mg Q6H ORAL 06/21/20 00:00 07/21/20 00:00 06/23/20 00:29 Lidocaine (Lidoderm 5% PATCH) 2 patch Q24H TDERMAL 06/21/20 12:00 09/19/20 11:59 06/22/20 11:39 Magnesium Hydroxide (Mom) 30 ml DAILY ORAL 06/21/20 09:00 07/21/20 08:59 Methocarbamol (Robaxin) 500 mg Q8H PRN ORAL muscle spasm 06/21/20 10:15 07/21/20 10:14 06/22/20 11:39 Quetiapine Fumarate (SEROqueL) 200 mg TWICE A DAY ORAL 06/21/20 09:00 08/05/20 08:59 06/22/20 17:56 Temazepam (Restoril) 15 mg BEDTIME PRN ORAL Insomnia 06/20/20 23:15 06/27/20 23:14 Tramadol HCl (Ultram) 50 mg Q4H PRN ORAL severe pain 06/21/20 10:06 06/28/20 10:05 06/22/20 22:22 Trazodone HCl (Desyrel) 100 mg BEDTIME ORAL 06/20/20 23:30 07/20/20 23:29 06/22/20 22:22 Last 24 Hour Vital Signs Date Time Temp Pulse Resp B/P (MAP) Pulse Ox O2 Delivery O2 Flow Rate FiO2 06/23/20 04:00 97.8 75 18 116/63 (80) 94 75 06/23/20 00:02 75 18 100 Room Air 21 76 18 99 06/22/20 21:00 Room Air 06/22/20 20:00 98.9 88 17 101/59 (73) 93 88 06/22/20 19:26 77 17 99 Room Air 21 73 18 99 06/22/20 16:30 98.2 82 18 112/63 (79) 94 06/22/20 13:37 84 18 99 Room Air 21 80 16 99 06/22/20 12:00 98.1 75 18 116/66 (83) 96 06/22/20 09:00 Room Air 06/22/20 08:00 97.5 84 18 132/72 (92) 94 06/22/20 07:56 80 18 99 Room Air 21 77 18 97 06/22/20 04:00 98.0 74 18 125/70 (88) 94 06/22/20 00:00 97.9 79 18 105/63 (77) 94 06/21/20 21:00 Room Air 06/21/20 20:00 97.9 84 16 98/59 (72) 93 06/21/20 19:19 84 18 99 Room Air 21 76 18 95 06/21/20 16:00 97.9 76 18 97/61 (73) 94 06/21/20 13:18 87 18 99 Room Air 21 83 18 96 06/21/20 12:00 98.3 80 18 149/83 (105) 96 06/21/20 09:00 Room Air 06/21/20 08:18 91 18 99 Room Air 21 88 18 97 06/21/20 08:00 98.0 78 18 117/78 (91) 98 Intake and Output 06/22/20 06/23/20 19:00 07:00 Intake Total 1660 ml Output Total 1500 ml Balance 160 ml Intake Oral 1000 ml IV Total 660 ml Output Urine Total 1500 ml # Voids 4 Labs Test 06/20/20 18:41 06/20/20 19:05 06/20/20 23:00 06/21/20 04:50 Troponin I 0.000 ng/mL (0.000-0.056) White Blood Count 3.7 K/UL (4.8-10.8) 3.7 K/UL (4.8-10.8) Red Blood Count 4.56 M/UL (4.70-6.10) 4.13 M/UL (4.70-6.10) Hemoglobin 12.9 G/DL (14.2-18.0) 11.6 G/DL (14.2-18.0) Hematocrit 39.0 % (42.0-52.0) 35.0 % (42.0-52.0) Mean Corpuscular Volume 86 FL (80-99) 85 FL (80-99) Mean Corpuscular Hemoglobin 28.2 PG (27.0-31.0) 28.1 PG (27.0-31.0) Mean Corpuscular Hemoglobin Concent 33.0 G/DL (32.0-36.0) 33.1 G/DL (32.0-36.0) Red Cell Distribution Width 15.3 % (11.6-14.8) 14.9 % (11.6-14.8) Platelet Count 125 K/UL (150-450) 109 K/UL (150-450) Mean Platelet Volume 6.7 FL (6.5-10.1) 7.0 FL (6.5-10.1) Neutrophils (%) (Auto) 37.5 % (45.0-75.0) 29.4 % (45.0-75.0) Lymphocytes (%) (Auto) 31.5 % (20.0-45.0) 45.5 % (20.0-45.0) Monocytes (%) (Auto) 18.0 % (1.0-10.0) 14.8 % (1.0-10.0) Eosinophils (%) (Auto) 9.0 % (0.0-3.0) 9.1 % (0.0-3.0) Basophils (%) (Auto) 4.0 % (0.0-2.0) 1.2 % (0.0-2.0) Prothrombin Time 11.7 SEC (9.30-11.50) Prothromb Time International Ratio 1.1 (0.9-1.1) Activated Partial Thromboplast Time 32 SEC (23-33) D-Dimer 0.44 mg/L FEU (0.00-0.49) Sodium Level 137 MMOL/L (136-145) 138 MMOL/L (136-145) Potassium Level 3.9 MMOL/L (3.5-5.1) 4.1 MMOL/L (3.5-5.1) Chloride Level 102 MMOL/L (98-107) 106 MMOL/L (98-107) Carbon Dioxide Level 27 MMOL/L (21-32) 24 MMOL/L (21-32) Blood Urea Nitrogen 20 mg/dL (7-18) 17 mg/dL (7-18) Creatinine 1.0 MG/DL (0.55-1.30) 0.9 MG/DL (0.55-1.30) Estimat Glomerular Filtration Rate > 60 mL/min (>60) > 60 mL/min (>60) Glucose Level 90 MG/DL (74-106) 89 MG/DL (74-106) Lactic Acid Level 0.90 mmol/L (0.4-2.0) Calcium Level 9.1 MG/DL (8.5-10.1) 8.4 MG/DL (8.5-10.1) Ferritin 22 NG/ML (8-388) Total Bilirubin 0.4 MG/DL (0.2-1.0) 0.4 MG/DL (0.2-1.0) Aspartate Amino Transf (AST/SGOT) 59 U/L (15-37) 49 U/L (15-37) Alanine Aminotransferase (ALT/SGPT) 71 U/L (12-78) 49 U/L (12-78) Alkaline Phosphatase 123 U/L (46-116) 91 U/L (46-116) Lactate Dehydrogenase 171 U/L (81-234) Total Creatine Kinase 63 U/L (26-308) Creatine Kinase MB 0.9 NG/ML (0.0-3.6) Creatine Kinase MB Relative Index 1.4 C-Reactive Protein, Quantitative < 0.4 mg/dL (0.00-0.90) Pro-B-Type Natriuretic Peptide 28 pg/mL (0-125) Total Protein 7.3 G/DL (6.4-8.2) 6.0 G/DL (6.4-8.2) Albumin 3.7 G/DL (3.4-5.0) 2.9 G/DL (3.4-5.0) Globulin 3.6 g/dL 3.1 g/dL Albumin/Globulin Ratio 1.0 (1.0-2.7) 0.9 (1.0-2.7) Lipase 308 U/L (73-393) Urine Color Pale yellow Urine Appearance Clear Urine pH 6 (4.5-8.0) Urine Specific [place] 1.020 (1.005-1.035) Urine Protein Negative (NEGATIVE) Urine Glucose (UA) Negative (NEGATIVE) Urine Ketones Negative (NEGATIVE) Urine Blood Negative (NEGATIVE) Urine Nitrite Negative (NEGATIVE) Urine Bilirubin Negative (NEGATIVE) Urine Urobilinogen Normal MG/DL (0.0-1.0) Urine Leukocyte Esterase Negative (NEGATIVE) Anion Gap 8 mmol/L (5-15) HIV (1&2) Antibody Rapid Negative (NEGATIVE) Test 06/22/20 04:55 06/23/20 04:50 White Blood Count 3.4 K/UL (4.8-10.8) 3.9 K/UL (4.8-10.8) Red Blood Count 4.06 M/UL (4.70-6.10) 4.04 M/UL (4.70-6.10) Hemoglobin 11.4 G/DL (14.2-18.0) 11.4 G/DL (14.2-18.0) Hematocrit 34.6 % (42.0-52.0) 34.2 % (42.0-52.0) Mean Corpuscular Volume 85 FL (80-99) 85 FL (80-99) Mean Corpuscular Hemoglobin 28.0 PG (27.0-31.0) 28.2 PG (27.0-31.0) Mean Corpuscular Hemoglobin Concent 32.9 G/DL (32.0-36.0) 33.2 G/DL (32.0-36.0) Red Cell Distribution Width 14.8 % (11.6-14.8) 14.6 % (11.6-14.8) Platelet Count 93 K/UL (150-450) 88 K/UL (150-450) Mean Platelet Volume 6.6 FL (6.5-10.1) 6.7 FL (6.5-10.1) Neutrophils (%) (Auto) % (45.0-75.0) % (45.0-75.0) Lymphocytes (%) (Auto) % (20.0-45.0) % (20.0-45.0) Monocytes (%) (Auto) % (1.0-10.0) % (1.0-10.0) Eosinophils (%) (Auto) % (0.0-3.0) % (0.0-3.0) Basophils (%) (Auto) % (0.0-2.0) % (0.0-2.0) Differential Total Cells Counted 100 Neutrophils % (Manual) 43 % (45-75) Lymphocytes % (Manual) 43 % (20-45) Monocytes % (Manual) 6 % (1-10) Eosinophils % (Manual) 8 % (0-3) Basophils % (Manual) 0 % (0-2) Band Neutrophils 0 % (0-8) Platelet Estimate Decreased Platelet Morphology Normal Anisocytosis 1+ Sodium Level 137 MMOL/L (136-145) Potassium Level 4.0 MMOL/L (3.5-5.1) Chloride Level 107 MMOL/L (98-107) Carbon Dioxide Level 26 MMOL/L (21-32) Anion Gap 4 mmol/L (5-15) Blood Urea Nitrogen 13 mg/dL (7-18) Creatinine 1.1 MG/DL (0.55-1.30) Estimat Glomerular Filtration Rate > 60 mL/min (>60) Glucose Level 87 MG/DL (74-106) Calcium Level 8.5 MG/DL (8.5-10.1) Height (Feet): 5 Height (Inches): 8.00 Weight (Pounds): 160 Objective Vitals: reviewed General: NAD HEENT: nc, at Neck: supple Chest: clear breath sounds bilaterally Cardiovascular: RRR, no s3, s4 Abdomen: soft, nontender, nd Extremities: no cce, normal range of motion Neuro: alert and oriented Daniel Barrios MD Jun 23, 2020 06:16
--- NOTE | 2020-06-23 07:12 | NUR ---
NURSE NOTES: Report received from Angie MOORE, rounds made. Patient sleeping. No distress on RA. Respirations even/unlabored. IV (D51/2 NS) at 60 ml/hr to RAC, site asymptomatic. Call light in reach, bed in lowest position, will continue to monitor.
--- NOTE | 2020-06-23 07:36 | NUR ---
NURSE HAND-OFF: Important Events on Shift:[US ABD processed. Breakfast held] Patient Status: [stable] Diet: [regular] Pending Orders: [US ABD] Pending Results/Labs:[NONE] Pending MD notification:[NONE] Latest Vital Signs: Temperature 97.8 , Pulse 75 , B/P 116 /63 , Respiratory Rate 18 , O2 SAT 94 , Room Air, O2 Flow Rate . Vital Sign Comment: WNL Latest Reeves Fall Score: 50 Fall Risk: High Risk Safety Measures: Call light Within Reach, Bed Alarm Zone 1, Side Rails Side Rails x2, Bed position Low and Locked. Fall Precautions: Door Sign Patient Fall Education Report given to [OSCAR MICHELLE].
[2020-06-23 08:00] VITALS: BP 109/68
[2020-06-23] MEDS: Milk of Magnesia 30ml Ud ORAL SCH (09:00)
[2020-06-23] MEDS: Heparin 5000 units/ml inj SUBQ SCH ×2 (09:00→21:00)
--- NOTE | 2020-06-23 09:10 | General Progress Note ---
Subjective Constitutional: Reports: weakness Allergies: Coded Allergies: BUPROPION (Verified Allergy, Unknown, 06/20/20) All Systems: reviewed and negative except above Subjective sl gen pain Objective Last 24 Hour Vital Signs Date Time Temp Pulse Resp B/P (MAP) Pulse Ox O2 Delivery O2 Flow Rate FiO2 06/23/20 07:46 72 18 99 Room Air 21 79 16 98 06/23/20 04:00 97.8 75 18 116/63 (80) 94 75 06/23/20 00:02 75 18 100 Room Air 21 76 18 99 06/22/20 21:00 Room Air 06/22/20 20:00 98.9 88 17 101/59 (73) 93 88 06/22/20 19:26 77 17 99 Room Air 21 73 18 99 06/22/20 16:30 98.2 82 18 112/63 (79) 94 06/22/20 13:37 84 18 99 Room Air 21 80 16 99 06/22/20 12:00 98.1 75 18 116/66 (83) 96 Intake and Output 06/22/20 06/23/20 19:00 07:00 Intake Total 1660 ml 500 ml Output Total 1500 ml 1100 ml Balance 160 ml -600 ml Intake Oral 1000 ml 500 ml IV Total 660 ml Output Urine Total 1500 ml 1100 ml # Voids 4 3 Laboratory Tests 06/23/20 04:50: White Blood Count 3.9L, Red Blood Count 4.04L, Hemoglobin 11.4L, Hematocrit 34.2L, Mean Corpuscular Volume 85, Mean Corpuscular Hemoglobin 28.2, Mean Corpuscular Hemoglobin Concent 33.2, Red Cell Distribution Width 14.6, Platelet Count 88L, Mean Platelet Volume 6.7, Neutrophils (%) (Auto) , Lymphocytes (%) (Auto) , Monocytes (%) (Auto) , Eosinophils (%) (Auto) , Basophils (%) (Auto) , Neutrophils % (Manual) [Pending], Lymphocytes % (Manual) [Pending], Platelet Estimate [Pending], Platelet Morphology [Pending], Sodium Level 137, Potassium Level 4.2, Chloride Level 105, Carbon Dioxide Level 26, Anion Gap 6, Blood Urea Nitrogen 13, Creatinine 1.0, Estimat Glomerular Filtration Rate > 60, Glucose Level 87, Calcium Level 8.6 Height (Feet): 5 Height (Inches): 8.00 Weight (Pounds): 160 General Appearance: alert EENT: normal ENT inspection Neck: normal alignment Cardiovascular: normal peripheral pulses, normal rate, regular rhythm Respiratory/Chest: chest wall non-tender, lungs clear, normal breath sounds Abdomen: normal bowel sounds, non tender, soft Extremities: normal inspection Edema: no edema noted Arm (L), no edema noted Arm (R), no edema noted Leg (L), no edema noted Leg (R), no edema noted Pedal (L), no edema noted Pedal (R), no edema noted Generalized Neurologic: responsive, motor weakness Skin: normal pigmentation, warm/dry Assessment/Plan Problem List: (1) Neuropathy ICD Codes: G62.9 - Polyneuropathy, unspecified SNOMED: 500340126 (2) Pancytopenia ICD Codes: D61.818 - Other pancytopenia SNOMED: 891958538 (3) Depressed ICD Codes: F32.9 - Major depressive disorder, single episode, unspecified SNOMED: 94451136 (4) Malnutrition ICD Codes: E46 - Unspecified protein-calorie malnutrition SNOMED: 59614090 (5) COPD (chronic obstructive pulmonary disease) ICD Codes: J44.9 - Chronic obstructive pulmonary disease, unspecified SNOMED: 23977542 (6) Chronic pain ICD Codes: G89.29 - Other chronic pain SNOMED: 10341301 (7) Intractable pain ICD Codes: R52 - Pain, unspecified SNOMED: 37688341 Status: stable, progressing Assessment/Plan: pt diet pain control psyc eval heme eval cbc bmp am dc plan Franki Fuller DO Jun 23, 2020 09:10
--- NOTE | 2020-06-23 09:31 | NUR ---
DISCHARGE PLANNING DISCHARGE ORDER NOTED FAXED CLINICALS TO [facility] T:[phone] F: [phone] AWAIT BED CONFIRMATION Addendum: 06/23/20 at 0950 by BARRETT WYATT LVN LVN F/U CALL PLACED TO [facility]. 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
[2020-06-23] MEDS: QUEtiapine 200mg tab ORAL SCH ×2 (09:57→18:12)
[2020-06-23] MEDS: traMADol 50mg tab ORAL PRN ×2 (09:58→21:29)
--- NOTE | 2020-06-23 09:58 | NUR ---
NURSE NOTES: Spoke to Melissa SEPULVEDA, patient will not be accepted back to [facility] until tomorrow 06/24, Antoinette HAYES and patient updated.
--- NOTE | 2020-06-23 10:05 | NUR ---
NURSE NOTES: Patient complains of being hungry and doesn't want to wait any longer for US abdomen to be done. Called ultrasound department, waiting cushion sewer back for time. Breakfast tray provided. US returned call, notified that patient ate already, will try back later today for ultrasound, patient updated, verbalized understanding.
--- NOTE | 2020-06-23 10:19 | Initial Psychiatric Evaluation ---
Psychiatry Consultation Psychiatry Consultation Chief Complaint: Pain History of Present Illness: 59yo male continues to have mood lability, paranoia and disorganized thought process. Allergies: Coded Allergies: BUPROPION (Verified Allergy, Unknown, 06/20/20) Medication History Scheduled Albuterol Sulfate (Ventolin Hfa), 2 PUFFS INH EVERY 6 HOURS, (Reported) Gabapentin* (Gabapentin*), 400 MG ORAL THREE TIMES A DAY, (Reported) Magnesium Hydroxide* (Milk Of Magnesia*), 30 ML ORAL DAILY, (Reported) Quetiapine Fumarate* (Seroquel*), 200 MG ORAL TWICE A DAY, (Reported) Trazodone* (Trazodone*), 100 MG ORAL BEDTIME, (Reported) Triamcinolone Acetonide (Triamcinolone Acetonide 0.1% LOTN), 60 ML TP DAILY, (Reported) Scheduled PRN Al Hydroxide/mg Hydroxide (Mag-Al Liquid), 30 ML GT EVERY 4 HOURS PRN for GI DISTRESS, (Reported) Ibuprofen* (Motrin*), 600 MG GT Q6H PRN for For Pain, (Reported) Temazepam* (Restoril*), 15 MG ORAL BEDTIME PRN for Insomnia, (Reported) Discontinued Medications Ibuprofen* (Motrin Ib*), 600 MG ORAL Q6H, (Reported) Discontinued Reason: Prescription changed Objective Data Height (Feet): 5 Height (Inches): 8.00 Weight (Pounds): 160 Appearance: disheveled Affect: constricted Speech: dysarthric Thought Process: goal-directed Thought Content: delusions of grandiosity Perceptual Disturbances: auditory Suicidal Ideation: no plan Cognition: no abnormalities Assessment/Plan Assessment/Plan: Continue Seroquel 200 bid and 20 min of CBT thereapy whereas I help the patiernt identify his automatic negative thoughts and help him convert those negative thoughts to more positive thougt. Diagnosis [place] I: Paranoid schizophrenia with acute exacerbation Vee Merino MD Jun 23, 2020 10:19
--- NOTE | 2020-06-23 10:45 | General Progress Note ---
Subjective Date patient seen: Jun 23, 2020 Time patient seen: 09:15 - am Allergies: Coded Allergies: BUPROPION (Verified Allergy, Unknown, 06/20/20) Subjective HISTORY OF PRESENT ILLNESS: The patient is a 59-year-old male, who is being seen on the Med/Surg floor of [facility]. Patient is in bed and showing no signs of pain or distress. Pain has been stable on the tramadol. Xrays reviewed. We continue to recommend Orthopedic surgeon evaluation. REVIEW OF SYSTEMS: Denies rash, fever, chills, sweating, dizziness, drowsiness, blurred vision, sore throat, or change in weight. No nausea, vomiting, diarrhea, or blood in the stool. No dysuria. Objective Last 24 Hour Vital Signs Date Time Temp Pulse Resp B/P (MAP) Pulse Ox O2 Delivery O2 Flow Rate FiO2 06/23/20 08:00 98.3 80 18 109/68 (82) 94 06/23/20 07:46 72 18 99 Room Air 21 79 16 98 06/23/20 04:00 97.8 75 18 116/63 (80) 94 75 06/23/20 00:02 75 18 100 Room Air 21 76 18 99 06/22/20 21:00 Room Air 06/22/20 20:00 98.9 88 17 101/59 (73) 93 88 06/22/20 19:26 77 17 99 Room Air 21 73 18 99 06/22/20 16:30 98.2 82 18 112/63 (79) 94 06/22/20 13:37 84 18 99 Room Air 21 80 16 99 06/22/20 12:00 98.1 75 18 116/66 (83) 96 Intake and Output 06/22/20 06/23/20 19:00 07:00 Intake Total 1660 ml 500 ml Output Total 1500 ml 1100 ml Balance 160 ml -600 ml Intake Oral 1000 ml 500 ml IV Total 660 ml Output Urine Total 1500 ml 1100 ml # Voids 4 3 Laboratory Tests 06/23/20 04:50: White Blood Count 3.9L, Red Blood Count 4.04L, Hemoglobin 11.4L, Hematocrit 34.2L, Mean Corpuscular Volume 85, Mean Corpuscular Hemoglobin 28.2, Mean Corpuscular Hemoglobin Concent 33.2, Red Cell Distribution Width 14.6, Platelet Count 88L, Mean Platelet Volume 6.7, Neutrophils (%) (Auto) , Lymphocytes (%) (A uto) , Monocytes (%) (Auto) , Eosinophils (%) (Auto) , Basophils (%) (Auto) , Neutrophils % (Manual) [Pending], Lymphocytes % (Manual) [Pending], Platelet Estimate [Pending], Platelet Morphology [Pending], Sodium Level 137, Potassium Level 4.2, Chloride Level 105, Carbon Dioxide Level 26, Anion Gap 6, Blood Urea Nitrogen 13, Creatinine 1.0, Estimat Glomerular Filtration Rate > 60, Glucose Level 87, Calcium Level 8.6 Height (Feet): 5 Height (Inches): 8.00 Weight (Pounds): 160 Objective GENERAL: Alert, awake, and oriented. LUNGS: Decreased breath sounds bilaterally. HEART: S1 and S2, regular. ABDOMEN: Soft and nontender. EXTREMITIES: No cyanosis. No clubbing. No edema. NEURO: No changes. Procedure: XRAY Hip 1v Uni L EXAM: XR Left Hip, 1 view CLINICAL HISTORY: PAIN TECHNIQUE: One frontal view of the left hip COMPARISON: No relevant prior studies available. FINDINGS: Bones/joints: Mild degeneration of the left hip. Degeneration of the pubic symphysis. No acute fracture. No dislocation. Soft tissues: Unremarkable. IMPRESSION: Degeneration of the pubic symphysis and left hip. Procedure: XRAY Shoulder Compl L EXAM: XR Left Shoulder Complete, 2 or More Views CLINICAL HISTORY: PAIN TECHNIQUE: Two or more views of the left shoulder. COMPARISON: No relevant prior studies available. FINDINGS: Bones/joints: Advanced degeneration of the left glenohumeral joint. Mild osteoarthrosis of the left acromioclavicular joint.. No acute fracture. No dislocation. Soft tissues: Unremarkable. IMPRESSION: Advanced degeneration of the left glenohumeral joint. Mild osteoarthrosis of the left AC joint. Assessment/Plan Assessment/Plan: (1) Left hip and shoulder pain (2) Left hip and shoulder OA (3) Peripheral neuropathy Patient to be continued on Tramadol. Recommend Orthopedic evaluation as per plating inspector. D/w Dr. Rico and he concurred. Rico Be Jun 23, 2020 10:45
--- NOTE | 2020-06-23 10:52 | NUR ---
NURSE NOTES: Spoke to Dr. Davis during rounds regarding patient current status, recommends orthopedic consult, message left for Dr. Fuller.
--- NOTE | 2020-06-23 11:10 | NUR ---
CASE MANAGEMENT:REVIEW 06/23/20 SI: INTRACTABLE PAIN. COPD. DEPRESSION 98.3 80 18 109/68 94% ON RA H/H-11.4/34.6 PLT-93 IS: LIDOCAINE PATCH Q24 ROBAXIN PO Q8HRS PRN ULTRAM PO Q4HRS PRN SEROQUEL PO BID NEURONTIN PO TID HEPARIN SQ Q12 ALBUTEROL HHN Q6HRS RTC IVF@60/HR : MED/SURG 3 EAST PLAN: PLANNED TO DISCHARGE BACK TO SNF TODAY BUT THEY WOULD NOT ACCEPT PATIENT UNITL TOMORROW, WEDNESDAY
--- NOTE | 2020-06-23 11:12 | NUR ---
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
[2020-06-23 12:00] VITALS: BP 100/62
[2020-06-23] MEDS: Methocarbamol 500mg tab ORAL PRN (13:08)
--- NOTE | 2020-06-23 14:30 | NUR ---
NURSE NOTES: Abdomen US done at bedside at this time. Provided rolled blankets x2 to LUE for elevation and support, patient verbalizes comfort, will continue to monitor.
--- NOTE | 2020-06-23 15:34 | Diagnostic Imaging Report ---
History: ABD DIST Exam: US ABDOMEN Comparison: None available FINDINGS: Appearance of somewhat nodular contour surface of the liver which can be seen with underlying cirrhosis, nonspecific/clinically correlate. Visualized portions of the head and body of the pancreas appear within limits. Adjacent peripancreatic, norma hepatis hypoechoic focus suggesting possibility of lymph node measures 2.8 x 0.8 x 1.6 cm. Inferior vena cava appears within limits. The proximal and mid abdominal aorta appear within limits. The distal abdominal aorta is obscured by bowel gas. The liver measures 15.5 cm and appears within limits for echogenicity. The gallbladder wall is thickened measuring 5 mm. Also note of gallbladder wall area of echogenic focus and associated artifact most suggestive of adenomyomatosis. Shadowing gallstone measuring 1.8 cm. Nondistended gallbladder. Very small pericholecystic free fluid suggested. Sonographic Charles's sign is indeterminate with report of preprocedure pain medicine given. CBD is dilated for age at 8 mm. Main portal vein appears patent with flow towards the liver. The appearance of the kidneys suggest possibility of horseshoe kidney or a crossed fused ectopia variant. No hydronephrosis identified. No free fluid seen. The spleen is enlarged measuring 16.5 cm. IMPRESSION: Appearance of somewhat nodular contour surface of the liver which can be seen with underlying cirrhosis, nonspecific/clinically correlate. Adjacent peripancreatic, norma hepatis hypoechoic focus suggesting possibility of lymph node measures 2.8 x 0.8 x 1.6 cm. The gallbladder wall is thickened measuring 5 mm. Also note of gallbladder wall area of echogenic focus and associated artifact most suggestive of adenomyomatosis. Shadowing gallstone measuring 1.8 cm. Nondistended gallbladder. Very small pericholecystic free fluid suggested. Sonographic Charles's sign is indeterminate with report of preprocedure pain medicine given. CBD is dilated for age at 8 mm. The appearance of the kidneys suggest possibility of horseshoe kidney or a crossed fused ectopia variant. No hydronephrosis identified. No free fluid seen. The spleen is enlarged measuring 16.5 cm.
[2020-06-23 16:00] VITALS: BP 98/54
--- NOTE | 2020-06-23 19:05 | NUR ---
NURSE NOTES: NURSE HAND-OFF: Important Events on Shift:US abdomen done, Pending transfer back to [facility] tomorrow 06/24, Dr. Fuller notified of Dr. Be recommendation for Orthopedic consult needed Patient Status: stable Diet: regular Pending Orders: none Pending Results/Labs:none Pending MD notification:none Latest Vital Signs: Temperature 98.3 , Pulse 88 , B/P 98 /54 , Respiratory Rate 16 , O2 SAT 93 , Room Air, O2 Flow Rate . Vital Sign Comment: none Latest Reeves Fall Score: 50 Fall Risk: High Risk Safety Measures: Call light Within Reach, Bed Alarm Zone 1, Side Rails Side Rails x2, Bed position Low and Locked. Fall Precautions: Door Sign Patient Fall Education Report given to Angie MOORE.
--- NOTE | 2020-06-23 19:44 | NUR ---
NURSES NOTE: Pt in bed, A/OX4, denies pain at this time. No outward s/s of distress noted. Breathing pattern is even and unlabored on RA. IV R AC is intact, infusing IVF fluids without incident. US ABD completed today. Pt now back on regular diet. D/C possibly 06/24/20. All due medications will be given. Bed at lowest level. Call light within reach. Pt will continue to be monitored.
[2020-06-23 20:00] VITALS: BP 97/55
[2020-06-23] MEDS: TraZODone 100mg tab ORAL SCH (21:28)
[2020-06-24] VITALS: BP 103/58
[2020-06-24] MEDS: Albuterol ud Inhalation HHN SCH ×3 (01:00→13:43)
[2020-06-24] MEDS: traMADol 50mg tab ORAL PRN (02:00)
--- NOTE | 2020-06-24 02:01 | NUR ---
NURSE NOTES: Complained of shoulder pain, given PRN pain medication as ordered, will reassess.
[2020-06-24 04:00] VITALS: BP 119/71
[2020-06-24 06:36] LABS: HEMATOCRIT 33.9 % (42.0-52.0); HEMOGLOBIN 11.3 G/DL (14.2-18.0); MEAN CORPUSCULAR VOLUME 85 FL (80-99); PLATELET COUNT 102 K/UL (150-450); RED BLOOD COUNT 4.01 M/UL (4.70-6.10); RED CELL DISTRIBUTION WIDTH 14.8 % (11.6-14.8); WHITE BLOOD COUNT 3.4 K/UL (4.8-10.8)
[2020-06-24 06:44] LABS: ANION GAP 4 mmol/L (5-15); BLOOD UREA NITROGEN 16 mg/dL (7-18); CALCIUM 8.3 MG/DL (8.5-10.1); CARBON DIOXIDE 27 MMOL/L (21-32); CHLORIDE 106 MMOL/L (98-107); CREATININE 1.1 MG/DL (0.55-1.30); POTASSIUM 4.2 MMOL/L (3.5-5.1); SODIUM 137 MMOL/L (136-145)
--- NOTE | 2020-06-24 06:57 | Hematology/Onc Progress Note ---
Assessment/Plan Assessment/Plan Assessment and Recs # Pancytopenia -- multiple etiologies could be related to underlying liver disease, medication-induced, cirrhosis is seen on the us abd+ --> peripheral smear has been ordered and does not show significant abnormalities --> Medications have been reviewed --> Continue to monitor for improvement, trend cbc --> Hep panel and HIV have been orders-->results are neg --> US abd ordered to r/o cirrhosis and hepatosplenomegaly -->does shows cirrhosis, nodular liver --> reverse isolation if ANC is <2000 --> Give neupogen if ANC <1000 --> Transfuse if hgb <7, with 1 unit prbc # Coagulopathy --> mildly elev pt --> imaging pend # Lymphadenopathy -- with adjacent peripancreatic, norma hepatis hypoechoic focus suggesting possibility of lymph node measures 2.8 x 0.8 x 1.6 cm. --> repeat in [address] scan outpatient once acute adm resolves --> outpatient f/u 2 weeks with pcp # Intractable pain --> as per pain management # Transaminitis --> monitor, ast elev # Dvt ppx hepa sq The timing of this note does not necessarily reflect the time of the patient was seen. Greatly appreciate consultation. Subjective Constitutional: Denies: no symptoms, chills, fever, malaise, weakness, other HEENT: Denies: no symptoms, eye pain, blurred vision, tearing, double vision, ear pain, ear discharge, nose pain, nose congestion, throat pain, throat swelling, mouth pain, mouth swelling, other Cardiovascular: Denies: no symptoms, chest pain, edema, irregular heart rate, lightheadedness, palpitations, syncope, other Respiratory: Denies: no symptoms, cough, shortness of breath, SOB with excertion, SOB at rest, sputum, wheezing, other Gastrointestinal/Abdominal: Denies: no symptoms, abdomen distended, abdominal pain, black stools, tarry stools, blood in stool, constipated, diarrhea, difficulty swallowing, nausea, poor appetite, poor fluid intake, rectal bleeding, vomiting, other Neurologic/Psychiatric: Denies: no symptoms, anxiety, depressed, emotional problems, headache, numbness, paresthesia, pre-existing deficit, seizure, tingling, tremors, weakness, other Endocrine: Denies: no symptoms, excessive sweating, flushing, intolerance to cold, intolerance to heat, increased hunger, increased thirst, increased urine, unexplained weight gain, unexplained weight loss, other Hematologic/Lymphatic: Denies: no symptoms, anemia, easy bleeding, easy bruising, adenopathy, other Allergies: Coded Allergies: BUPROPION (Verified Allergy, Unknown, 06/20/20) Subjective 06/23 labs reviewed, meds noted, no bleeding, hep and hiv neg 06/24 us abd shows cirrhosis labs reviewed, meds noted Objective Objective Current Medications Medications (Trade) Dose Ordered Sig/Alexander Route PRN Reason Start Time Stop Time Status Last Admin Dose Admin Albuterol Sulfate (Proventil) 2.5 mg Q6HRT HHN 06/21/20 07:00 06/26/20 06:59 06/24/20 01:00 Dextrose/Sodium Chloride 1,000 ml @ 60 mls/hr [id number] IV 06/20/20 23:00 07/20/20 22:59 06/23/20 16:43 Gabapentin (Neurontin) 400 mg THREE TIMES A DAY ORAL 06/21/20 09:00 07/21/20 08:59 06/23/20 18:12 Heparin Sodium (Porcine) (Heparin 5000 units/ml) 5,000 units EVERY 12 HOURS SUBQ 06/21/20 09:00 08/05/20 08:59 Ibuprofen (Motrin) 600 mg Q6H ORAL 06/21/20 00:00 07/21/20 00:00 06/24/20 05:56 Lidocaine (Lidoderm 5% PATCH) 2 patch Q24H TDERMAL 06/21/20 12:00 09/19/20 11:59 06/23/20 12:49 Magnesium Hydroxide (Mom) 30 ml DAILY ORAL 06/21/20 09:00 07/21/20 08:59 Methocarbamol (Robaxin) 500 mg Q8H PRN ORAL muscle spasm 06/21/20 10:15 07/21/20 10:14 06/23/20 13:08 Quetiapine Fumarate (SEROqueL) 200 mg TWICE A DAY ORAL 06/21/20 09:00 08/05/20 08:59 06/23/20 18:12 Temazepam (Restoril) 15 mg BEDTIME PRN ORAL Insomnia 06/20/20 23:15 06/27/20 23:14 Tramadol HCl (Ultram) 50 mg Q4H PRN ORAL severe pain 06/21/20 10:06 06/28/20 10:05 06/24/20 02:00 Trazodone HCl (Desyrel) 100 mg BEDTIME ORAL 06/20/20 23:30 07/20/20 23:29 06/23/20 21:28 Last 24 Hour Vital Signs Date Time Temp Pulse Resp B/P (MAP) Pulse Ox O2 Delivery O2 Flow Rate FiO2 06/24/20 04:00 98.0 72 18 119/71 (87) 92 06/24/20 01:00 75 18 100 Room Air 21 74 18 96 06/24/20 00:00 98.6 79 17 103/58 (73) 94 06/23/20 21:00 Room Air 06/23/20 20:00 98.3 66 16 97/55 (69) 95 06/23/20 19:56 79 18 100 Room Air 21 77 18 98 06/23/20 16:00 98.3 88 16 98/54 (69) 93 06/23/20 13:48 87 16 100 Room Air 21 81 18 97 06/23/20 12:00 98.3 91 18 100/62 (75) 95 06/23/20 09:00 Room Air 06/23/20 08:00 98.3 80 18 109/68 (82) 94 06/23/20 07:46 72 18 99 Room Air 21 79 16 98 06/23/20 04:00 97.8 75 18 116/63 (80) 94 75 06/23/20 00:02 75 18 100 Room Air 21 76 18 99 06/22/20 21:00 Room Air 06/22/20 20:00 98.9 88 17 101/59 (73) 93 88 06/22/20 19:26 77 17 99 Room Air 21 73 18 99 06/22/20 16:30 98.2 82 18 112/63 (79) 94 06/22/20 13:37 84 18 99 Room Air 21 80 16 99 06/22/20 12:00 98.1 75 18 116/66 (83) 96 06/22/20 09:00 Room Air 06/22/20 08:00 97.5 84 18 132/72 (92) 94 06/22/20 07:56 80 18 99 Room Air 21 77 18 97 Intake and Output 06/23/20 06/24/20 19:00 07:00 Intake Total 1800 ml 500 ml Output Total 1125 ml 800 ml Balance 675 ml -300 ml Intake Oral 1200 ml 500 ml IV Total 600 ml Output Urine Total 1125 ml 800 ml # Voids 4 3 Labs Test 06/22/20 04:55 06/23/20 04:50 06/24/20 05:05 White Blood Count 3.4 K/UL (4.8-10.8) 3.9 K/UL (4.8-10.8) 3.4 K/UL (4.8-10.8) Red Blood Count 4.06 M/UL (4.70-6.10) 4.04 M/UL (4.70-6.10) 4.01 M/UL (4.70-6.10) Hemoglobin 11.4 G/DL (14.2-18.0) 11.4 G/DL (14.2-18.0) 11.3 G/DL (14.2-18.0) Hematocrit 34.6 % (42.0-52.0) 34.2 % (42.0-52.0) 33.9 % (42.0-52.0) Mean Corpuscular Volume 85 FL (80-99) 85 FL (80-99) 85 FL (80-99) Mean Corpuscular Hemoglobin 28.0 PG (27.0-31.0) 28.2 PG (27.0-31.0) 28.2 PG (27.0-31.0) Mean Corpuscular Hemoglobin Concent 32.9 G/DL (32.0-36.0) 33.2 G/DL (32.0-36.0) 33.3 G/DL (32.0-36.0) Red Cell Distribution Width 14.8 % (11.6-14.8) 14.6 % (11.6-14.8) 14.8 % (11.6-14.8) Platelet Count 93 K/UL (150-450) 88 K/UL (150-450) 102 K/UL (150-450) Mean Platelet Volume 6.6 FL (6.5-10.1) 6.7 FL (6.5-10.1) 6.7 FL (6.5-10.1) Neutrophils (%) (Auto) % (45.0-75.0) % (45.0-75.0) % (45.0-75.0) Lymphocytes (%) (Auto) % (20.0-45.0) % (20.0-45.0) % (20.0-45.0) Monocytes (%) (Auto) % (1.0-10.0) % (1.0-10.0) % (1.0-10.0) Eosinophils (%) (Auto) % (0.0-3.0) % (0.0-3.0) % (0.0-3.0) Basophils (%) (Auto) % (0.0-2.0) % (0.0-2.0) % (0.0-2.0) Differential Total Cells Counted 100 100 Neutrophils % (Manual) 43 % (45-75) 48 % (45-75) Lymphocytes % (Manual) 43 % (20-45) 32 % (20-45) Monocytes % (Manual) 6 % (1-10) 11 % (1-10) Eosinophils % (Manual) 8 % (0-3) 9 % (0-3) Basophils % (Manual) 0 % (0-2) 0 % (0-2) Band Neutrophils 0 % (0-8) 0 % (0-8) Platelet Estimate Decreased Decreased Platelet Morphology Normal Normal Anisocytosis 1+ Sodium Level 137 MMOL/L (136-145) 137 MMOL/L (136-145) 137 MMOL/L (136-145) Potassium Level 4.0 MMOL/L (3.5-5.1) 4.2 MMOL/L (3.5-5.1) 4.2 MMOL/L (3.5-5.1) Chloride Level 107 MMOL/L (98-107) 105 MMOL/L (98-107) 106 MMOL/L (98-107) Carbon Dioxide Level 26 MMOL/L (21-32) 26 MMOL/L (21-32) 27 MMOL/L (21-32) Anion Gap 4 mmol/L (5-15) 6 mmol/L (5-15) 4 mmol/L (5-15) Blood Urea Nitrogen 13 mg/dL (7-18) 13 mg/dL (7-18) 16 mg/dL (7-18) Creatinine 1.1 MG/DL (0.55-1.30) 1.0 MG/DL (0.55-1.30) 1.1 MG/DL (0.55-1.30) Estimat Glomerular Filtration Rate > 60 mL/min (>60) > 60 mL/min (>60) > 60 mL/min (>60) Glucose Level 87 MG/DL (74-106) 87 MG/DL (74-106) 95 MG/DL (74-106) Calcium Level 8.5 MG/DL (8.5-10.1) 8.6 MG/DL (8.5-10.1) 8.3 MG/DL (8.5-10.1) Red Blood Cell Morphology Normal Height (Feet): 5 Height (Inches): 8.00 Weight (Pounds): 160 Objective Vitals: reviewed General: NAD HEENT: nc, at Neck: supple Chest: clear breath sounds bilaterally Cardiovascular: RRR, no s3, s4 Abdomen: soft, nontender, nd Extremities: no cce, normal range of motion Neuro: alert and oriented Daniel Barrios MD Jun 24, 2020 06:57
[2020-06-24 08:00] VITALS: BP 115/73
--- NOTE | 2020-06-24 08:00 | NUR ---
NURSE NOTES: Received report from Angie MOORE. Patient is awake and oriented, in no apparent distress, reporting pain in left hip and shoulder, patient reports pain is chronic, patient not requesting any PRN's for pain. Patient updated on plan of care and pending discharge for today. Side rails upx2, bed low and locked, call light within reach.
--- NOTE | 2020-06-24 08:01 | NUR ---
NURSE HAND-OFF: Important Events on Shift:[D/C today. Endorsed to AM RN. BP was running low. SBP 88 at one point. However, monitored and returned to baseline majority of NOC shift] Patient Status: [STABLE] Diet: [REGULAR] Pending Orders: [NONE] Pending Results/Labs:[NONE] Pending MD notification:[NONE] Latest Vital Signs: Temperature 98.0 , Pulse 72 , B/P 119 /71 , Respiratory Rate 18 , O2 SAT 92 , Room Air, O2 Flow Rate . Vital Sign Comment: [WNL] Latest Reeves Fall Score: 50 Fall Risk: High Risk Safety Measures: Call light Within Reach, Bed Alarm Zone 1, Side Rails Side Rails x2, Bed position Low and Locked. Fall Precautions: Door Sign Patient Fall Education Report given to [OSCAR OLVERA].
--- NOTE | 2020-06-24 08:46 | General Progress Note ---
Subjective Date patient seen: Jun 24, 2020 Time patient seen: 07:30 - am Allergies: Coded Allergies: BUPROPION (Verified Allergy, Unknown, 06/20/20) Subjective HISTORY OF PRESENT ILLNESS: The patient is a 59-year-old male, who is being seen on the Med/Surg floor of [facility]. In bed no signs of pain or distress. Pain has been tolerated on the Tramadol. REVIEW OF SYSTEMS: Denies rash, fever, chills, sweating, dizziness, drowsiness, blurred vision, sore throat, or change in weight. No nausea, vomiting, diarrhea, or blood in the stool. No dysuria. Objective Last 24 Hour Vital Signs Date Time Temp Pulse Resp B/P (MAP) Pulse Ox O2 Delivery O2 Flow Rate FiO2 06/24/20 07:24 86 18 100 Room Air 21 82 18 96 06/24/20 04:00 98.0 72 18 119/71 (87) 92 06/24/20 01:00 75 18 100 Room Air 21 74 18 96 06/24/20 00:00 98.6 79 17 103/58 (73) 94 06/23/20 21:00 Room Air 06/23/20 20:00 98.3 66 16 97/55 (69) 95 06/23/20 19:56 79 18 100 Room Air 21 77 18 98 06/23/20 16:00 98.3 88 16 98/54 (69) 93 06/23/20 13:48 87 16 100 Room Air 21 81 18 97 06/23/20 12:00 98.3 91 18 100/62 (75) 95 06/23/20 09:00 Room Air Intake and Output 06/23/20 06/24/20 19:00 07:00 Intake Total 1800 ml 500 ml Output Total 1125 ml 800 ml Balance 675 ml -300 ml Intake Oral 1200 ml 500 ml IV Total 600 ml Output Urine Total 1125 ml 800 ml # Voids 4 3 Laboratory Tests 06/24/20 05:05: White Blood Count 3.4L, Red Blood Count 4.01L, Hemoglobin 11.3L, Hematocrit 33.9L, Mean Corpuscular Volume 85, Mean Corpuscular Hemoglobin 28.2, Mean Corpuscular Hemoglobin Concent 33.3, Red Cell Distribution Width 14.8, Platelet Count 102L, Mean Platelet Volume 6.7, Neutrophils (%) (Auto) , Lymphocytes (%) (Auto) , Monocytes (%) (Auto) , Eosinophils (%) (Auto) , Basophils (%) (Auto) , Neutrophils % (Manual) [Pending], Lymphocytes % (Manual) [Pending], Platelet Estimate [Pending], Platelet Morphology [Pending], Sodium Level 137, Potassium Level 4.2, Chloride Level 106, Carbon Dioxide Level 27, Anion Gap 4L, Blood Urea Nitrogen 16, Creatinine 1.1, Estimat Glomerular Filtration Rate > 60, Glucose Level 95, Calcium Level 8.3L Height (Feet): 5 Height (Inches): 8.00 Weight (Pounds): 160 Objective GENERAL: Alert, awake, and oriented. LUNGS: Decreased breath sounds bilaterally. HEART: S1 and S2, regular. ABDOMEN: Soft and nontender. EXTREMITIES: No cyanosis. No clubbing. No edema. NEURO: No changes. Procedure: XRAY Hip 1v Uni L EXAM: XR Left Hip, 1 view CLINICAL HISTORY: PAIN TECHNIQUE: One frontal view of the left hip COMPARISON: No relevant prior studies available. FINDINGS: Bones/joints: Mild degeneration of the left hip. Degeneration of the pubic symphysis. No acute fracture. No dislocation. Soft tissues: Unremarkable. IMPRESSION: Degeneration of the pubic symphysis and left hip. Procedure: XRAY Shoulder Compl L EXAM: XR Left Shoulder Complete, 2 or More Views CLINICAL HISTORY: PAIN TECHNIQUE: Two or more views of the left shoulder. COMPARISON: No relevant prior studies available. FINDINGS: Bones/joints: Advanced degeneration of the left glenohumeral joint. Mild osteoarthrosis of the left acromioclavicular joint.. No acute fracture. No dislocation. Soft tissues: Unremarkable. IMPRESSION: Advanced degeneration of the left glenohumeral joint. Mild osteoarthrosis of the left AC joint. Assessment/Plan Assessment/Plan: (1) Left hip and shoulder pain (2) Left hip and shoulder OA (3) Peripheral neuropathy Patient to be continued on Tramadol. Recommend Orthopedic evaluation as per power shovel mechanic. D/w Dr. Rico and he concurred. Rico Be Jun 24, 2020 08:46
[2020-06-24] MEDS: Heparin 5000 units/ml inj SUBQ SCH (08:47)
[2020-06-24] MEDS: Milk of Magnesia 30ml Ud ORAL SCH (08:47)
[2020-06-24] MEDS: QUEtiapine 200mg tab ORAL SCH (08:48)
--- NOTE | 2020-06-24 09:01 | Consultation ---
DATE OF CONSULTATION: 06/22/2020 PSYCHOTHERAPY CONSULTATION PROGRESS NOTE CONSULTING PHYSICIAN: Pasquale Nunez PsyD TREATING ATTENDING PHYSICIAN: Franki Fuller DO. HISTORY OF PRESENT ILLNESS: The patient is a 59-year-old male patient. The patient was brought to the hospital for intractable pain. Apparently, the patient has been having of racing thoughts and difficulty sleeping. He was referred for psychotherapeutic services. He also has a history of bipolar disorder . I assessed this patient. The patient states that he has been having difficulty sleeping, he has been to the hospital to he has been feeling helpless and anxious and he has had intolerance. However, now he states that he is no longer having racing thoughts. He denies suicidal or homicidal thoughts or ideation. He is cooperative. PAST MEDICAL HISTORY: Includes a history of intractable pain. ALLERGIES: The patient has allergies to . SUBSTANCE ABUSE HISTORY: The patient denies history of alcohol use, illicit substance use. 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 He might have a history of paranoid schizophrenia. MENTAL STATUS EXAMINATION: Alert and oriented to person, place, time, and mood is anxious. Affect congruent. Thought process, disorganized. He has poor attention and concentration. Fair insight, judgment, impulse control. DIAGNOSES: 1. Schizoaffective disorder, bipolar type. 2. Intractable pain, . 3. Psychosocial stressors are moderate. he has pain. He is a 59-year-old male patient from [facility]. I ASSESSED THIS PATIENT AND PROVIDED THE PATIENT WITH: 4. Reality orientation, oriented to person, place, time, and situation. . 5. Provided with supportive psychotherapy. Encouraged the patient have positive thought process with positive coping skills, addressing feelings of anxiety and history of racing thoughts. PLAN: Maintain medication compliance with positive coping skills to stabilize mood, thought, behavior. Psychotherapy provided for this patient 45 minutes. This clinician has reviewed the patient's chart and discussed the treatment with treatment team. Pasquale Nunez PsyD. DR: TERRENCE JOB#: [id number] CC:
--- NOTE | 2020-06-24 09:24 | Initial Psychiatric Evaluation ---
Psychiatry Consultation Psychiatry Consultation Chief Complaint: Pain History of Present Illness: 59yo male patient who continues to be disorganized and his cognition has declined below his baseline. Allergies: Coded Allergies: BUPROPION (Verified Allergy, Unknown, 06/20/20) Medication History Scheduled Albuterol Sulfate (Ventolin Hfa), 2 PUFFS INH EVERY 6 HOURS, (Reported) Gabapentin* (Gabapentin*), 400 MG ORAL THREE TIMES A DAY, (Reported) Magnesium Hydroxide* (Milk Of Magnesia*), 30 ML ORAL DAILY, (Reported) Quetiapine Fumarate* (Seroquel*), 200 MG ORAL TWICE A DAY, (Reported) Trazodone* (Trazodone*), 100 MG ORAL BEDTIME, (Reported) Triamcinolone Acetonide (Triamcinolone Acetonide 0.1% LOTN), 60 ML TP DAILY, (Reported) Scheduled PRN Al Hydroxide/mg Hydroxide (Mag-Al Liquid), 30 ML GT EVERY 4 HOURS PRN for GI DISTRESS, (Reported) Ibuprofen* (Motrin*), 600 MG GT Q6H PRN for For Pain, (Reported) Temazepam* (Restoril*), 15 MG ORAL BEDTIME PRN for Insomnia, (Reported) Discontinued Medications Ibuprofen* (Motrin Ib*), 600 MG ORAL Q6H, (Reported) Discontinued Reason: Prescription changed Objective Data Height (Feet): 5 Height (Inches): 8.00 Weight (Pounds): 160 Appearance: disheveled Behavior Mannerisms: poor eye contact Affect: constricted Mood: euthymic Speech: dysarthric Thought Process: logical Thought Content: delusions of grandiosity Perceptual Disturbances: hallucinations, auditory Suicidal Ideation: not present Assessment/Plan Assessment/Plan: Continue Seroquel 200 bid and 20 min of CBT thereapy whereas I help the patiernt identify his automatic negative thoughts and help him convert those negative thoughts to more positive thougt. Diagnosis [place] I: Paranoid Schizophrenia Vee Merino MD Jun 24, 2020 09:24
--- NOTE | 2020-06-24 09:53 | General Progress Note ---
Subjective Constitutional: Reports: weakness Allergies: Coded Allergies: BUPROPION (Verified Allergy, Unknown, 06/20/20) All Systems: reviewed and negative except above Subjective sl gen pain Objective Last 24 Hour Vital Signs Date Time Temp Pulse Resp B/P (MAP) Pulse Ox O2 Delivery O2 Flow Rate FiO2 06/24/20 07:24 86 18 100 Room Air 21 82 18 96 06/24/20 04:00 98.0 72 18 119/71 (87) 92 06/24/20 01:00 75 18 100 Room Air 21 74 18 96 06/24/20 00:00 98.6 79 17 103/58 (73) 94 06/23/20 21:00 Room Air 06/23/20 20:00 98.3 66 16 97/55 (69) 95 06/23/20 19:56 79 18 100 Room Air 21 77 18 98 06/23/20 16:00 98.3 88 16 98/54 (69) 93 06/23/20 13:48 87 16 100 Room Air 21 81 18 97 06/23/20 12:00 98.3 91 18 100/62 (75) 95 Intake and Output 06/23/20 06/24/20 19:00 07:00 Intake Total 1800 ml 500 ml Output Total 1125 ml 800 ml Balance 675 ml -300 ml Intake Oral 1200 ml 500 ml IV Total 600 ml Output Urine Total 1125 ml 800 ml # Voids 4 3 Laboratory Tests 06/24/20 05:05: White Blood Count 3.4L, Red Blood Count 4.01L, Hemoglobin 11.3L, Hematocrit 33.9L, Mean Corpuscular Volume 85, Mean Corpuscular Hemoglobin 28.2, Mean Corpuscular Hemoglobin Concent 33.3, Red Cell Distribution Width 14.8, Platelet Count 102L, Mean Platelet Volume 6.7, Neutrophils (%) (Auto) , Lymphocytes (%) (Auto) , Monocytes (%) (Auto) , Eosinophils (%) (Auto) , Basophils (%) (Auto) , Differential Total Cells Counted 100, Neutrophils % (Manual) 43L, Lymphocytes % (Manual) 33, Monocytes % (Manual) 13H, Eosinophils % (Manual) 10H, Basophils % (Manual) 1, Band Neutrophils 0, Platelet Estimate DecreasedL, Platelet Morphology Normal, Anisocytosis 1+, Sodium Level 137, Potassium Level 4.2, Chloride Level 106, Carbon Dioxide Level 27, Anion Gap 4L, Blood Urea Nitrogen 16, Creatinine 1.1, Estimat Glomerular Filtration Rate > 60, Glucose Level 95, Calcium Level 8.3L Height (Feet): 5 Height (Inches): 8.00 Weight (Pounds): 160 General Appearance: lethargic EENT: normal ENT inspection Neck: normal alignment Cardiovascular: normal peripheral pulses, normal rate, regular rhythm Respiratory/Chest: chest wall non-tender, lungs clear, normal breath sounds Abdomen: normal bowel sounds, non tender, soft Extremities: normal inspection Edema: no edema noted Arm (L), no edema noted Arm (R), no edema noted Leg (L), no edema noted Leg (R), no edema noted Pedal (L), no edema noted Pedal (R), no edema noted Generalized Neurologic: motor weakness Skin: normal pigmentation, warm/dry Assessment/Plan Problem List: (1) Neuropathy ICD Codes: G62.9 - Polyneuropathy, unspecified SNOMED: 533307484 (2) Pancytopenia ICD Codes: D61.818 - Other pancytopenia SNOMED: 246933784 (3) Depressed ICD Codes: F32.9 - Major depressive disorder, single episode, unspecified SNOMED: 23920369 (4) Malnutrition ICD Codes: E46 - Unspecified protein-calorie malnutrition SNOMED: 16473286 (5) COPD (chronic obstructive pulmonary disease) ICD Codes: J44.9 - Chronic obstructive pulmonary disease, unspecified SNOMED: 36163241 (6) Chronic pain ICD Codes: G89.29 - Other chronic pain SNOMED: 67075686 (7) Intractable pain ICD Codes: R52 - Pain, unspecified SNOMED: 61686340 Status: stable, progressing Assessment/Plan: pt diet pain control psyc eval heme eval cbc bmp am dc plan Hermes Fullermy Declan DO Jun 24, 2020 09:53
[2020-06-24 12:00] VITALS: BP 120/68
--- NOTE | 2020-06-24 14:20 | NUR ---
DISCHARGE PLANNING S/W DARYA AT [facility] IN RE TO BED ASSIGNMENT. PATIENT ASSIGNED TO [facility] ALF S AMBULANCE TRANSPORTATION SCHEDULED WITH [facility] EXT 8840 WITH ETA @ 1600 PER DARIA
[2020-06-24 16:00] VITALS: BP 108/65
[2020-06-24] MEDS ORDERED: D5 1/2NS 1000ml IV ONE ×2 (16:00→16:46)
--- NOTE | 2020-06-24 16:10 | NUR ---
NURSE NOTES: Report given to Jeny MOORE at [facility].
--- NOTE | 2020-06-24 16:30 | NUR ---
NURSE NOTES: Patient discharged to [facility] in no apparent distress via BLS ambulance. All belongings accounted for and sent with patient, IV removed intact. Endorsed to Jeny MOORE at [facility] that patient has lidoderm patch on left shoulder and left hip.
--- NOTE | 2020-06-25 12:07 | Discharge Summary ---
Discharge Summary Discharge Summary _ DATE OF ADMISSION: 06/20/2020 DATE OF DISCHARGE: 06/24/2020 DISCHARGED BY: Dr. Fuller REASON FOR ADMISSION: 59 years old male, resident of [facility] facility, with past medical history of COPD, polyneuropathy, psychiatric disorder , was sent for evaluation due to management of neuropathic pain. Patient felt that he did not get appropriate pain management at the facility. Pain was not controlled. Patient was unable to sleep and was frustrated with his chronic pain. He denied recent illness. No cough or congestion. No chest pain. Upon evaluation vital signs were stable . Troponin was negative, pro BNP 28 Laboratory work-up revealed pancytopenia with WBC 3.7 , hemoglobin 12.9 ,and platelet count 125. D-dimer 0.44 Stable electrolytes and renal parameters Lactic acid 0.9. AST 59, ALT 71 , lipase 308 CRP less than 0.4 . Rapid COVID-19 was negative. In emergency department patient received analgesic, bronchodilator treatment with albuterol , IV hydration and admitted for further management. CONSULTANTS: pain specialist Dr. Rico web ui developer/oncologist Dr. Barrios psychiatrist Dr. Merino HOSPITAL COURSE: Patient admitted to medical surgical floor. Pain management was addressed as per pain specialist recommendation. Fall precautions maintained. Patient was working with physical therapist. SNF medication continued. Principal Embedded Software Engineer followed. Peripheral smear did not show any significant abnormality. Medications were reviewed. Hepatitis panel with evidence of hepatitis C, HIV test was nonreactive. Abdominal ultrasound revealed nodular contour of liver , probably underlying cirrhosis. Splenomegaly. AST trending down. Outpatient management for hepatitis C recommended. Hemoglobin and hematocrit were closely monitored with goal to keep hemoglobin above 7 ; prior to discharge hemoglobin 11.3 , hematocrit 33.9 . Counts were closely monitored: prior to discharge WBC 3.4 , platelet count 102. Psychiatrist closely followed and diagnosed patient with paranoid schizophrenia. Cognitive behavioral therapy provided. Patient was continue on Seroquel. Pain was controlled with current analgesic regimen as per pain specialist. Pain specialist recommended orthopedic surgery evaluation, which can be done as outpatient. Respiratory status remained stable. Pulse oximetry stable on room air. Patient clinically stabilized and was ready for transfer back to [facility] for continuation of care. FINAL DIAGNOSES: Intractable pain Peripheral neuropathy Left hip and shoulder pain Left hip and shoulder osteoarthritis Pancytopenia Hepatitis C Probably underlying cirrhosis COPD Depression Paranoid schizophrenia DISCHARGE MEDICATIONS: See Medication Reconciliation list. DISCHARGE INSTRUCTIONS: Patient was [facility] to the [facility] facility. Follow up with medical doctor at the facility. I have been assigned to dictate discharge summary for this account. I was not involved in the patient's management. Tammy Rodriguez NP Jun 25, 2020 12:07
--- NOTE | 2020-06-25 14:44 | NUR ---
INSURANCE DC SUMMARY/ INSTRUCTIONS/ CLINICALS (06/20-06/24) FAXED TO [facility] [phone] PH [phone] FX [phone] PH [phone]
== END 2020-06-24 16:30 | DRG 351 ==
LOC: EDBD 18:14 → EMR 18:59 → EDBEDREQ 20:24 → 3E 20:54 → EDBEDREQ 21:10 → 3E 21:41
DX: M16.12 Unilateral primary osteoarthritis, left hip (principal); M19.012 Primary osteoarthritis, left shoulder; D61.818 Other pancytopenia; E46 Unspecified protein-calorie malnutrition; G62.9 Polyneuropathy, unspecified; F32.9 Major depressive disorder, single episode, unspecified; J44.9 Chronic obstructive pulmonary disease, unspecified; Z88.8 Allergy status to other drugs, medicaments and biological substances; F17.200 Nicotine dependence, unspecified, uncomplicated; F25.0 Schizoaffective disorder, bipolar type; K74.60 Unspecified cirrhosis of liver; R79.1 Abnormal coagulation profile
CPT/HCPCS: 36415; 71045; 76700; 80048; 80053; 81003; 82550; 82553; 82728; 83605; 83615; 83690; 83880; 84484; 85007; 85025; 85379; 85610; 85730; 86140; 86703; 86705; 86709; 86803; 87040; 87081; 87340; 93005; 94640; 96361; 96374; 99285; J7030; U0002